=== PATIENT | male | born 2000 | race Caucasian/White ===

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

== ENCOUNTER 2020-02-15 10:01 | Day surgery (SDC) | payer BC, OTHER ==
[2020-02-11 13:10] VITALS: BMI 34.2
[~2020-02-15 10:01] MED LIST: LACTATED RINGERS 1,000 ML IV SCH; SODIUM CHLORIDE 0.9% 1,000 ML IV SCH
[2020-02-15 10:50] LABS: Basophils % (A) 1 %; Eosinophils # (A) 0.2 k/uL (0-0.7); Eosinophils % (A) 3 %; HCT 49.4 % (39.0-53.0); HGB 17.3 gm/dL (13.0-17.5); Lymphocytes # (A) 2.1 k/uL (1.0-4.8); Lymphocytes % (A) 38 %; MCH 30.1 pg (25.0-35.0); MCV 85.9 fL (80.0-100.0); Mean Platelet Volume 7.7; Monocytes # (A) 0.3 k/uL (0-1.0); Monocytes % (A) 5 %; Neutrophils # (A) 2.9 k/uL (1.3-7.7); Neutrophils % (A) 51 %; Platelet Count 232 k/uL (150-450); RBC 5.75 m/uL (4.30-5.90); RDW 12.9 % (11.5-15.5); WBC 5.6 k/uL (4.0-11.0)
[2020-02-15 10:57] LABS: African American GFR (CKD) >90 (>60 ml/min/1.73 sqM); Anion Gap 10 mmol/L; Blood Urea Nitrogen 10 mg/dL (9-20); Calcium 9.6 mg/dL (8.4-10.2); Carbon Dioxide 24 mmol/L (22-30); Chloride 105 mmol/L (98-107); Glucose 86 mg/dL (74-99); Non-African American GFR(CKD) >90 (>60 ml/min/1.73 sqM); Potassium 4.1 mmol/L (3.5-5.1); Sodium 139 mmol/L (137-145)
[2020-02-15] MEDS ORDERED: MIDAZOLAM 2 MG/2 ML VIAL ONE (11:30)
[2020-02-15] MEDS ORDERED: ONDANSETRON 4 MG/2 ML VIAL ONE (11:30)
[2020-02-15] MEDS ORDERED: fentaNYL (PF) 50 MCG/ML 2 ML AMP ONE (11:30)
[2020-02-15] MEDS ORDERED: ISOPROTERENOL 250 MCG/1.25 ML SYR IV ONE (11:30)
[2020-02-15] MEDS ORDERED: LIDOCAINE 1% INJ 10MG/ML (20 ML MDV) ONE (11:47)
[2020-02-15] MEDS ORDERED: LIDOCAINE 1% INJ 10MG/ML (20 ML MDV) SQ ONE (12:05)
--- NOTE | 2020-02-15 14:37 | P.PRLE ---
RE: Berhane Anaya Dear Dr. Tram Last underwent a diagnostic EP study which revealed #1. Typical AV node reentrant tachycardia #2. Brief bursts of atrial fibrillation, nonsustained He underwent successful ablation of the slow pathway. AV aquiles reentry was rendered noninducible. I will stop beta blockers now However he may continue to have very brief palpitations on account of short bursts of atrial fibrillation Weight reduction should continue along with lifestyle modification Thank you for entrusting me with the care of the patient Warm regards Sincerely Soto Sharma
--- NOTE | 2020-02-15 14:40 | P.HPCAR ---
History of Present Illness This is Dr. Sharma dictating an H/P on this patient The patient was interviewed and examined IMPRESSION / ASSESSMENT: Recurrent palpitations, possibly adenosine sensitive SVT Some reduction in episodes with beta blockers but he continues to have palpitations Increased BMI but steady weight reduction History of smoking cigarettes PLAN: Diagnostic EP study and possible radiofrequency ablation HPI Recurrent palpitations despite beta blockers No recent loss of consciousness No chest discomfort He also complains of anxiousness No fever chills cough expectoration no nausea vomiting or diarrhea ROS: No fever chills or rigors, no cough, phlegm or expectoration, no nausea, vomiting or diarrhea, no hematuria, dysuria, no musculoskeletal complaints, no strokes or seizures, no skin lesions. EXAMINATION: Afebrile, pulse rate 102 beats a minute, normal respirations Blood pressure 139/83 mmHg normal pulse ox on room air Breath sounds are clear no rhonchi no crackles Normal heart sounds Normal S1, normal S2 No murmurs no gallops no rub Abdomen is soft Extremities warm no edema REVIEW OF LABS, ECG & MEDICAL DATA Sodium 139, potassium 4.1, bicarb 24, BUN 10 and creatinine 0.8 Hemoglobin 17.3, platelet count 232,000, white count 5.6 thousand Physical Exam Vitals: Vital Signs Temp Pulse Resp BP Pulse Ox 02/15/20 10:39 98.4 F 102 H 18 139/83 98 Intake and Output 02/14/20 02/15/20 02/15/20 22:59 06:59 14:59 Intake Total 770 Balance 770 Intake: IV 770 Past Medical History Past Medical History: Diabetes Mellitus Additional Past Medical History / Comment(s): See Dr Sharma H&P, hx elevated liver enzymes, states past hx of diabetes, states A1C below 6 History of Any Multi-Drug Resistant Organisms: None Reported Past Surgical History: No Surgical Hx Reported Additional Past Surgical History / Comment(s): OCD Past Anesthesia/Blood Transfusion Reactions: No Reported Reaction Smoking Status: Former smoker Physical Examination Vital Signs Temp Pulse Resp BP Pulse Ox 02/15/20 10:39 98.4 F 102 H 18 139/83 98 Intake and Output 02/14/20 02/15/20 02/15/20 22:59 06:59 14:59 Intake Total 770 Balance 770 Intake: IV 770 Results 02/15/20 10:25 02/15/20 10:25 CBC 02/15/20 Range/Units 10:25 WBC 5.6 (4.0-11.0) k/uL RBC 5.75 (4.30-5.90) m/uL Hgb 17.3 (13.0-17.5) gm/dL Hct 49.4 (39.0-53.0) % Plt Count 232 (150-450) k/uL Comprehensive Metabolic Panel 02/15/20 Range/Units 10:25 Sodium 139 (137-145) mmol/L Potassium 4.1 (3.5-5.1) mmol/L Chloride 105 (98-107) mmol/L Carbon Dioxide 24 (22-30) mmol/L BUN 10 (9-20) mg/dL Creatinine 0.78 (0.66-1.25) mg/dL Glucose 86 (74-99) mg/dL Calcium 9.6 (8.4-10.2) mg/dL Current Medications Generic Name Dose Route Start Last Admin Trade Name Freq PRN Reason Stop Dose Admin Lactated Ringer's 1,000 mls @ 20 mls/hr 02/14/20 13:00 Lactated Ringers IV .Q24H SHAYLA Sodium Chloride 1,000 mls @ 50 mls/hr 02/15/20 06:03 02/15/20 10:40 Saline 0.9% IV 770 mls .Q20H SHAYLA Administration Intake and Output 02/14/20 02/15/20 02/15/20 22:59 06:59 14:59 Intake Total 770 Balance 770 Intake: IV 770 02/15/20 10:25 02/15/20 10:25
[2020-02-15] MEDS ORDERED: ACETAMINOPHEN TAB 325 MG TAB PO PRN (14:47)
[2020-02-15] MEDS ORDERED: ACETAMINOPHEN IV (For NPO) 1,000 MG in EMPTY BAG 1 BAG IVPB ONE (16:00)
--- NOTE | 2020-02-15 18:22 | P.DS ---
Providers Attending physician: Soto Sharma Primary care physician: [facility] Course: Final diagnosis AV aquiles reentrant tachycardia Status post successful ablation Brief nonsustained episodes of atrial fibrillation Plan - Discharge Summary Discharge Rx Participant: No New Discharge Prescriptions: Discontinued Metoprolol Tartrate 25 mg PO BID #60 tab Follow up Appointment(s)/Referral(s): Neha Donovan MD [STAFF PHYSICIAN] - 1 Week Activity/Diet/Wound Care/Special Instructions: Post EP study - Ablation instructions 1. Keep access sites dry for 2 days. 2. No heavy lifting or straining for 2 days. 3. Avoid bending the hips repeatedly for 2 days. 4. You may go up and down stairs slowly Call if the following is noted 1. Bleeding, increasing swelling or pain at the access sites. 2. Increasing chest discomfort, especially upon taking a deep breath. 3. Increasing shortness of breath, at rest or with exertion. 4. Undue cough / phlegm 5. Difficulty or pain while swallowing. 6. Pain or change in color in the extremities. 7. Fever, chills, rigors. 8. Increasing headache or neurologic symptoms. 9. Dizziness, fainting, palpitations Stop metoprolol Follow-up with Dr. Donovan within one week Discharge Disposition: HOME SELF-CARE
--- NOTE | 2020-02-16 03:58 | CE ---
CARDIAC ELECTROPHYSIOLOGY REPORT Berhane Anaya is a 19-year-old male patient with recurrent palpitations despite metoprolol. He is brought in for diagnostic EP study and possible ablation. Patient was brought to the EP lab in a fasting state. Written informed consent was obtained prior to the procedure. The left and right groins were prepped and draped as per protocol and 1% lidocaine was used for local anesthesia. Venous sheaths were placed in the right and left femoral veins and via these diagnostic catheters were positioned in the high right atrium, His bundle area, right ventricle and coronary sinus. Later mapping and ablation catheters were placed. A full diagnostic EP study was performed on and off Isuprel. Baseline measurements: Sinus cycle length 794 milliseconds,. IN interval 119 milliseconds, QRS 88 milliseconds, QT 333 milliseconds. AH interval 50 milliseconds, HV interval 41 milliseconds. Sinus node recovery times of 600, 500, 400 milliseconds were 1065, 1068 and 913 milliseconds. AV node Wenckebach block 330 milliseconds. VA Wenckebach block 490 milliseconds. Para Hisian pacing revealed a ab response. During sinus rhythm, the CS activation was concentric and with ventricular pacing retrograde conduction was concentric. Atrial extra stimulation was performed after double extrastimuli from the high right atrium and from the coronary sinus. Burst stimulation was performed from both sites. With burst stimulation, short bursts of atrial fibrillation were noted less than 10-20 seconds with spontaneous termination. There was evidence for antegrade slow pathway conduction with atrial extra stimulation with double extra stimuli, but in the baseline state no AV ab reentry could be induced. Isuprel was then started and burst stimulation as well as extra stimulation was performed. With burst stimulation on Isuprel at cycle length of 330 milliseconds, sustained SVT was induced. This SVT began as a long IN interval with short septal time of 37 milliseconds. Ventricular pacing at a slightly fast rate resulted in termination of the tachycardia. It is difficult to induce the AV ab reentry consistently, but we had evidence of antegrade slow pathway conduction during extra stimulation as well as inducible AV ab reentry with a short septal time. Therefore, a long sheath and a mapping ablation 4 mm tip ablation catheter was placed in the right atrium. A 3D electroanatomical mapping was performed. The His cloud was tagged and the coronary sinus os was tagged both at the roof as well as base/floor of the coronary sinus. Tricuspid valve was tagged. The slow pathway was mapped. RF ablation was applied. No junctional rhythm was noted. RF ablation was applied from the tricuspid anulus to the coronary sinus. Following this, a full diagnostic EP study was performed both on and off high-dose Isuprel wide open and then subsequently up to 5 mcg was used. With burst stimulation from the high right atrium and from the coronary sinus as well as extra stimulation up to triple extrastimuli from 2 sites, no SVT could be induced. No echo beats could be induced. No atrial fibrillation was induced. Isuprel was stopped and burst stimulation, extra stimulation was continued, but SVT could not be induced. All catheters were then removed. The patient was transferred back to telemetry. IMPRESSION: 1. Normal baseline measurements without any evidence for antegrade accessory pathway conduction. 2. Normal AH and HV intervals. 3. Ab response to para Hisian pacing. 4. Inducible AV node reentrant tachycardia, status post ablation. 5. Inducible paroxysmal atrial fibrillation with spontaneous termination within 15 to 20 seconds. PLAN: Stop metoprolol completely. MMMARTHA / KEELYN: [id number] /
[2020-02-16 08:05] VITALS: BP 128/70; PULSE 84; RESP 16; TEMP 98.1
== END 2020-02-16 12:06 | disposition home or self-care (01) ==
LOC: CATHEP 10:01 → 1SOBS 14:07 → CATHEP 02-16 12:06
PROVIDERS: ATTEND Internal Medicine Clinical Cardiac Electrophysiology
DX: I47.1 Supraventricular tachycardia (principal); I48.91 Unspecified atrial fibrillation; E11.9 Type 2 diabetes mellitus without complications; F42.9 Obsessive-compulsive disorder, unspecified; Z87.891 Personal history of nicotine dependence; Z79.899 Other long term (current) drug therapy
CPT/HCPCS: 93005; 93623; 93613; 93653; 80048; 85025; C1894; C1769 ×2; C1730 ×2; C1732; C1893; J2001

== ENCOUNTER → 2020-04-13 | Outpatient (CLI) | payer BC, OTHER ==
--- NOTE | 2020-04-13 09:20 | US ---
EXAMINATION TYPE: US liver DATE OF EXAM: 04/13/2020 COMPARISON: 03/30/2019 CLINICAL HISTORY: K76.0 Fatty liver nonalcoholic. Elevated liver enzymes EXAM MEASUREMENTS: Liver Length: 16.2 cm Gallbladder Wall: 0.2 cm CBD: 0.4 cm Right Kidney: 10.5 x 4.6 x 5.8 cm Pancreas: Obscured by bowel gas Liver: mildly heterogeneous Gallbladder: wnl Evidence for sonographic Mcdaniel's sign: no CBD: visualized portions wnl, limited by overlying bowel gas Right Kidney: wnl IMPRESSION: 1. Liver is heterogeneous. Finding is nonspecific can be seen with hepatic steatosis or hepatitis. Co rrelate clinically.
== END | disposition home or self-care (01) ==
LOC: RADUSWWP 08:43
PROVIDERS: ATTEND Internal Medicine Gastroenterology
DX: K76.89 Other specified diseases of liver (principal)
CPT/HCPCS: 76705

== ENCOUNTER 2020-05-16 01:45 | Emergency (ER) | payer BC, OTHER ==
--- NOTE | 2020-05-16 02:48 | ED ---
Headache HPI - General Chief Complaint: Headache Stated Complaint: Vision changes, headache Time Seen by Provider: 05/16/20 02:46 Mode of arrival: ambulatory Limitations: no limitations - History of Present Illness Initial Comments: Berhane is a 20 yo male with past medical history of SVT which was treated with ablation in January of this year, patient presents the ER today for evaluation of vision change and headache. Patient reports that he was watching TV when he began to have kaleidoscope-like vision in his right eye. Patient states he had similar symptoms the first time he had SVT. He states that he alerted his mother of these symptoms decided to come to the ER. In route to the ER the vision changes subsided and he developed a pretty significant headache most prominent as a pressure on the right side of the head. Patient denies any fevers, chills, nausea or vomiting. He denies any recent illness or head trauma. He reports that the headache is a dull pressure on the right side of his head. It was not sudden in onset is not the worse headache of his life. Not associated with any meningeal signs. Mother bedside states that she has a long history of migraines with visual auras and believes what he is describing is similar to what she experiences. - Related Data Allergies Allergy/AdvReac Type Severity Reaction Status Date / Time No Known Allergies Allergy Verified 05/16/20 01:55 Review of Systems ROS Statement: Those systems with pertinent positive or pertinent negative responses have been documented in the HPI. ROS Other: All systems not noted in ROS Statement are negative. Past Medical History Past Medical History: Diabetes Mellitus, Supraventricular Tachycardia (SVT) Additional Past Medical History / Comment(s): See Dr Sharma H&P, hx elevated liver enzymes, states past hx of diabetes, states A1C below 6 History of Any Multi-Drug Resistant Organisms: None Reported Past Surgical History: No Surgical Hx Reported Additional Past Surgical History / Comment(s): OCD, HEART ABLATION Past Anesthesia/Blood Transfusion Reactions: No Reported Reaction Past Psychological History: ADD/ADHD, Anxiety Smoking Status: Current every day smoker Past Alcohol Use History: None Reported Past Drug Use History: None Reported General Exam - General Exam Comments Initial Comments: Physical Exam GENERAL: Patient is well-developed and well-nourished Patient is nontoxic and well-hydrated and is in no distress. HENT: Normocephalic, Atraumatic. Full ROM of neck with no meningeal signs EYES: PERRL, EOMI PULMONARY: Unlabored respirations. CARDIOVASCULAR: RRR Warm and well perfused extremities ABDOMEN: Non-distended SKIN: No rashes or bruising : Deferred NEUROLOGIC: Alert and oriented Normal speech Normal gait MUSCULOSKELETAL: Moving all extremities with no apparent injury PSYCHIATRIC: No SI/HI Limitations: no limitations Course Vital Signs 05/16/20 05/16/20 01:52 04:44 Temperature 98.7 F 97.6 F Pulse Rate 107 H 82 Respiratory 20 18 Rate Blood Pressure 159/105 117/73 O2 Sat by Pulse 98 97 Oximetry Medical Decision Making - Medical Decision Making Patient was seen and evaluated upon arrival emergency department Patient is a 20-year-old male with visual changes which proceeded headache, however headache is only right-sided in nature and pressure-like Physical exam is unremarkable, patient has no meningeal signs headache doesn't radiate to the neck Patient did have visual changes however these results prior to arrival and the patient has no other focal neurologic deficits, headache was not sudden in onset and not the worse headache of his life Occasions and head CT were ordered Head CT with no acute findings Patient was reevaluated after occasions had significant improvement in the headache, normal head CT was discussed with the patient and patient was comfortable plan for discharge home Disposition Clinical Impression: Migraine with aura Disposition: HOME SELF-CARE Condition: Stable Instructions (If sedation given, give patient instructions): Acute Headache (ED) Additional Instructions: Follow up with primary care doctor, if you have recurrent headaches you may need referral to neurology Return to the ER for any worsening or development of new or concerning symptoms Is patient prescribed a controlled substance at d/c from ED?: No Referrals: Farhat Ugalde MD [Primary Care Provider] - 1-2 days
[2020-05-16] MEDS ORDERED: METOCLOPRAMIDE 5 MG/ML 2 ML VIAL IVP STA (03:12)
[2020-05-16] MEDS ORDERED: diphenhydrAMINE 50 MG/ML 1 ML VIAL IVP STA (03:12)
[2020-05-16] MEDS ORDERED: SODIUM CHLORIDE 0.9% 1,000 ML IV STA (03:12)
--- NOTE | 2020-05-16 04:23 | CT ---
EXAMINATION TYPE: CT brain wo con DATE OF EXAM: 05/16/2020 COMPARISON: None HISTORY: CONTE, Vison change CT DLP: 1099.40 mGycm Automated exposure control for dose reduction was used. The ventricles and sulci appear normal. There is no mass effect nor midline shift. There is no sign o f intracranial hemorrhage. The calvarium is intact. Skull base is intact. IMPRESSION: Negative unenhanced head CT scan.
[2020-05-16 04:45] VITALS: BP 117/73; PULSE 82; RESP 18; TEMP 97.6
== END 2020-05-16 04:46 | disposition home or self-care (01) ==
LOC: EC 01:45
DX: G43.109 Migraine with aura, not intractable, without status migrainosus (principal); F17.200 Nicotine dependence, unspecified, uncomplicated
CPT/HCPCS: 70450; 99284; 96374; 96375; 96361; J1200; J2765

== ENCOUNTER 2020-06-12 03:43 | Inpatient (IN) | payer OTHER ==
[2020-06-12 04:38] LABS: Basophils # (A) 0.1 k/uL (0-0.2); Basophils % (A) 1 %; Eosinophils # (A) 0.6 k/uL (0-0.7); Eosinophils % (A) 8 %; HCT 50.1 % (39.0-53.0); HGB 16.9 gm/dL (13.0-17.5); Lymphocytes # (A) 2.5 k/uL (1.0-4.8); Lymphocytes % (A) 33 %; MCH 29.7 pg (25.0-35.0); MCHC 33.8 g/dL (31.0-37.0); Mean Platelet Volume 7.5; Monocytes # (A) 0.4 k/uL (0-1.0); Monocytes % (A) 6 %; Neutrophils # (A) 3.7 k/uL (1.3-7.7); Neutrophils % (A) 50 %; Platelet Count 231 k/uL (150-450); RDW 13.2 % (11.5-15.5); WBC 7.4 k/uL (4.0-11.0)
[2020-06-12 04:43] LABS: Appearance,Urine Clear (Clear); Bacteria,Urine Rare /hpf; Bilirubin,Urine Negative (Negative); Blood,Urine Large (Negative); Color,Urine Yellow; Glucose,Urine (UA) Negative (Negative); Ketones,Urine Negative (Negative); Leukocyte Esterase,Urine Negative (Negative); Mucus,Urine Rare /hpf; Nitrite,Urine Negative (Negative); Protein,Urine 1+ (Negative); RBC,Urine <1 /hpf (0-5); Specific Gravity,Urine 1.029 (1.001-1.035); Urobilinogen,Urine <2.0 mg/dL (<2.0); WBC,Urine 1 /hpf (0-5)
[2020-06-12 04:49] LABS: ALT 223 U/L (4-49); African American GFR (CKD) >90 (>60 ml/min/1.73 sqM); Albumin 4.2 g/dL (3.5-5.0); Alkaline Phosphatase 47 U/L (38-126); Anion Gap 7 mmol/L; Blood Urea Nitrogen 17 mg/dL (9-20); Calcium 9.2 mg/dL (8.4-10.2); Carbon Dioxide 23 mmol/L (22-30); Chloride 108 mmol/L (98-107); Glucose 117 mg/dL (74-99); Non-African American GFR(CKD) >90 (>60 ml/min/1.73 sqM); Potassium 4.3 mmol/L (3.5-5.1); Sodium 138 mmol/L (137-145); Total Bilirubin 1.5 mg/dL (0.2-1.3); Total Protein 6.7 g/dL (6.3-8.2)
[2020-06-12 04:55] LABS: AST 1175 U/L (17-59)
[2020-06-12] MEDS ORDERED: NALOXONE 0.4 MG/ML 1 ML VIAL IV PRN (07:44)
[2020-06-12] MEDS ORDERED: SODIUM CHLORIDE 0.9% 1,000 ML IV SCH (07:45)
--- NOTE | 2020-06-12 09:50 | US ---
EXAMINATION TYPE: US liver DATE OF EXAM: 06/12/2020 COMPARISON: US dated 04/13/2020 CLINICAL HISTORY: transaminitis, elevated bili. HT EXAM MEASUREMENTS: Liver Length: 16.4 cm Gallbladder Wall: 0.2 cm CBD: 0.3 cm Right Kidney: 9.7 x 6.2 x 4.6 cm Pancreas: mid and tail is obscured by overlying bowel gas Liver: attenuated posteriorly, coarse echotexture Gallbladder: wnl Evidence for sonographic Mcdaniel's sign: no CBD: wnl Right Kidney: No hydronephrosis or masses seen IMPRESSION: Findings are similar to prior exam. Correlate for possible hepatic steatosis, hepatocellu lar disease
--- NOTE | 2020-06-12 12:06 | P.HPIM ---
History of Present Illness H&P Date: 06/12/20 HISTORY OF PRESENT ILLNESS This is a 20-year-old male patient of Dr. Ugalde with past medical history of with past medical history of seasonal ALLERGIES, supraventricular tachycardia status post ablation with Dr. Sharma in January 2020, fatty liver and follows with GI, morbid obesity, obstructive sleep apnea with CPAP, tobacco use and dependence, alcohol abuse. Patient gives history of weight loss 747 pounds over the past 2 years and is currently on a plateau. He states he lost the first 100 pounds by intermittent fasting and then the past 50 pounds with eating 3 meals a day. He states he normally walks for exercise spot on Friday he decided to lift weights and did so for 1-1/2 hours on his first time. He felt like he pulled a bicep muscle. He was feeling lightheaded. Patient apparently also had vision changes and headache. He states that his urine was orange but most recently had started to lighten up secondary to IV fluids. Liver ultrasound in March 2020 revealed liver is heterogeneous. Finding is nonspecific can be seen with hepatic steatosis or hepatitis. Patient has also been taking Motrin 600 mg twice daily. Patient came into [facility] emergency center for evaluation. Initial blood pressure 159/105 and repeated 117/73, heart rate 107, pulse ox 98% on room air. CAT scan of the brain was negative. Ultrasound of the liver revealed similar findings from March. Possible hepatic steatosis, hepatocellular disease. Lab work revealed creatinine 0.94, total bilirubin 1.5, AST 1175, ALT 223, alkaline phosphatase 47. The patient was started on IV fluids, [facility] with [facility]. REVIEW OF SYSTEMS Constitutional: No fever, no chills, no night sweats. No weight change. Report weakness, fatigue or lethargy. No daytime sleepiness. EENT: Reports headache. Reports blurred vision or double vision, no loss of vision. No loss of Hearing, no ringing in the ears, no dizziness. No nasal drainage or congestion. No epistaxis. No sore throat. Lungs: No shortness of breath, cough, no sputum production. No wheezing. Cardiovascular: No chest pain, no lower extremity edema. No palpitations. No paroxysmal nocturnal dyspnea. No orthopnea. No lightheadedness or dizziness. No syncopal episodes. Abdominal: No abdominal pain. No nausea, vomiting. No diarrhea. No constipation. No bloody or tarry stools.. No loss of appetite. Genitourinary: No dysuria, increased frequency, urgency. No urinary retention. Musculoskeletal: No myalgias. No muscle weakness, no gait dysfunction, no frequent falls. No back pain. No neck pain. Integumentary: No wounds, no lesions. No rash or pruritus. No unusual bruising. No change in hair or nails. Neurologic: No aphasia. No facial droop. No change in mentation. No head injury. No headache. No paralysis. No paresthesia. Psychiatric: No depression. No anxiety. No mood swings. Endocrine: No abnormal blood sugars. No weight change. No excessive sweating or thirst. No cold intolerance. SOCIAL HISTORY Patient states that he only drinks alcohol 2 times per month but he drinks excessively each time. He has been smoking on and off and tried to quit when he had his ablation. He is slowly started back to vaping. He denies any marijuana or drug use. He is a student. He does not have any children. FAMILY HISTORY Mother is alive at age 56 with elevated liver enzymes as well. Father is alive with but he does not know his medical history. Patient has 2 half-sisters with no major medical problems. He does not have any brothers, no children.. PHYSICAL EXAMINATION Gen: This is a 20-year-old morbidly obese male. He is sitting on the ER stretcher and appears to be comfortable. Mother is at bedside. HEENT: Head is atraumatic, normocephalic. Pupils equal, round. Sclerae is anicteric. NECK: Supple. No JVD. No lymphadenopathy. No thyromegaly. LUNGS: Clear to auscultation. No wheezes or rhonchi. No intercostal re tractions. HEART: Regular rate and rhythm. No murmur. ABDOMEN: Soft. Bowel sounds are present. No masses. No tenderness. No CVA tenderness. EXTREMITIES: No pedal edema. No calf tenderness. Dorsalis pedis palpable bilaterally. NEUROLOGICAL: Patient is awake, alert and oriented x3. Cranial nerves 2 through 12 are grossly intact. ASSESSMENT AND PLAN 1. Elevated liver function test with history of fatty liver disease under the care of GI. Consult with GI. Continue IV fluids decreased to 130s cc per hour, obtain CK level. 2. Migraine headache, stable. 3. History of SVT status post ablation, stable. 4. Seasonal ALLERGIES. 5. Morbid obesity status post weight loss of 147 pounds over 2 years. 6. Tobacco use and dependence. Nicotine patch. 7. Alcohol abuse, stable. 8. ADHD, OCD. 9. GI prophylaxis. Protonix. 10. DVT prophylaxis. Early ambulation. Patient will be admitted to the hospital for a minimum of 2 night stay. Discharge plan Home. Impression and plan of care have been directed as dictated by the signing physician. Nelia Black nurse practitioner acting as scribe for signing physician. Past Medical History Past Medical History: Diabetes Mellitus, Supraventricular Tachycardia (SVT) Additional Past Medical History / Comment(s): See Dr Sharma H&P, hx elevated liver enzymes, states past hx of diabetes, states A1C below 6 History of Any Multi-Drug Resistant Organisms: None Reported Past Surgical History: No Surgical Hx Reported Additional Past Surgical History / Comment(s): OCD, HEART ABLATION Past Anesthesia/Blood Transfusion Reactions: No Reported Reaction Past Psychological History: ADD/ADHD, Anxiety Smoking Status: Current every day smoker Past Alcohol Use History: None Reported Past Drug Use History: None Reported Medications and Allergies Home Medications Medication Instructions Recorded Confirmed Type Ibuprofen 600 mg PO Q6H PRN 06/12/20 06/12/20 History Loratadine [Claritin] 10 mg PO DAILY 06/12/20 06/12/20 History Allergies Allergy/AdvReac Type Severity Reaction Status Date / Time No Known Allergies Allergy Verified 06/12/20 07:38 Physical Exam Vitals: Intake and Output 06/11/20 06/12/20 06/12/20 22:59 06:59 14:59 Other: Weight 0 g
[2020-06-12] MEDS: SODIUM CHLORIDE 0.9% 1,000 ML IV SCH ×2 (13:37→19:32)
[2020-06-12] MEDS: NICOTINE 14MG/24HR PATCH TRANSDERM SCH (13:38)
[2020-06-12] MEDS ORDERED: PANTOPRAZOLE 40 MG TABLET PO ONE (16:18)
[2020-06-12] MEDS ORDERED: hydrALAZINE HCL 20 MG/ML 1 ML VIAL IVP PRN (20:24)
[2020-06-12] MEDS: MELATONIN 3 MG TABLET PO SCH (20:56)
[2020-06-13] MEDS: SODIUM CHLORIDE 0.9% 1,000 ML IV SCH ×3 (03:03→17:32)
[2020-06-13 04:34] LABS: C Reactive Protein <0.4 mg/dL (0.0-0.8); LDH 2009 U/L (120-246)
[2020-06-13 05:14] LABS: Basophils % (A) 1 %; Eosinophils # (A) 0.4 k/uL (0-0.7); Eosinophils % (A) 6 %; HCT 48.8 % (39.0-53.0); HGB 16.5 gm/dL (13.0-17.5); Lymphocytes # (A) 2.3 k/uL (1.0-4.8); Lymphocytes % (A) 35 %; MCH 30.5 pg (25.0-35.0); MCHC 33.8 g/dL (31.0-37.0); MCV 90.3 fL (80.0-100.0); Mean Platelet Volume 7.5; Monocytes # (A) 0.4 k/uL (0-1.0); Monocytes % (A) 6 %; Neutrophils # (A) 3.4 k/uL (1.3-7.7); Neutrophils % (A) 51 %; Platelet Count 207 k/uL (150-450); RBC 5.41 m/uL (4.30-5.90); WBC 6.6 k/uL (4.0-11.0)
[2020-06-13 05:17] LABS: Hepatitis A Antibody IgM Non-Reactive (Non-Reactive); Hepatitis B Core IgM Non-Reactive (Non-Reactive); Hepatitis B Surface Antigen Non-Reactive (Non-Reactive); Hepatitis C IgG Antibody Non-Reactive (Non-Reactive)
[2020-06-13] MEDS: hydrALAZINE HCL 25 MG TAB PO PRN ×2 (06:01→12:46)
[2020-06-13 09:19] LABS: INR 1.1 (0.90-1.11); Prothrombin Time 11.7 sec (9.9-11.9)
[2020-06-13 09:24] LABS: African American GFR (CKD) 157.5 (60.0-200.0); Albumin/Globulin Ratio 2.22 (1.60-3.17); Anion Gap 6.8 mmol/L (4.00-12.00); BUN/Creat Ratio 12.86 Ratio (12.00-20.00); Calcium 9.1 mg/dL (8.7-10.3); Carbon Dioxide 25.2 mmol/L (21.6-31.8); Globulin 1.8 g/dL (1.6-3.3); Non-African American GFR(CKD) 135.9 (60.0-200.0); Potassium 4.2 mmol/L (3.5-5.5); Total Bilirubin 2.1 mg/dL (0.2-1.2); Total Protein 5.8 g/dL (6.2-8.2)
--- NOTE | 2020-06-13 10:01 | P.CONS ---
History of Present Illness - Reason for Consult Consult date: 06/12/20 Elevated liver enzymes Requesting physician: Jules Silva - Chief Complaint Muscle soreness, dark urine, headache - History of Present Illness 20-year-old male with a medical history significant for morbid obesity status post 140 pounds of weight loss, MATTY, prior history of supraventricular tachycardia status post ablation in 2019 who presented to the hospital with a constellation of symptoms including headache, muscle soreness and dark-colored urine. The patient does have a known history of elevated liver enzymes believed to be secondary to nonalcoholic fatty liver disease. He is been seen in the GI clinic in the past. He presented to the hospital with a constellation of symptoms including dark [employer] colored urine. He reports that this began after a strenuous work revealed on Friday. No prior episodes of markedly elevated liver enzymes as stated previously had been mildly elevated and felt to be secondary to fatty liver as stated. She denies any excessive alcohol use reporting only occasional binge drinking one to 2 times per month. He denies any illicit drug use, IV drug use, herbal supplementation. No history of sexually transmitted diseases. The patient has had mononucleosis in the past. Laboratory evaluation on presentation significant for total bilirubin 1.5, alkaline phosphatase 47, AST 1175 and ALT 223 with WBC 7.4, hemoglobin 16.9 and platelet count 231,000. Review of Systems REVIEW OF SYSTEMS: CONSTITUTIONAL: Denies any fevers, chills, weight change or fatigue. CARDIOVASCULAR: Denies any chest pain, palpitations high or low blood pressures RESPIRATORY: Denies any shortness of breath, hemoptysis or cough. GENITOURINARY: No dysuria or hematuria, does report dark colored urine. MUSCULOSKELETAL: No weakness reported, does report general achiness. SKIN: Denies any new rashes or lesions, jaundice or pallor. PSYCHIATRIC: Denies any depression or anxiety. NEUROLOGY: Denies headache, denies any new focal deficits. EARS/NOSE/THROAT: No recent hearing change, congestion, nasal discharge or sore throat. EYES: No pain in eyes, discharge or change in vision. GASTROINTESTINAL: As per HPI. Past Medical History Past Medical History: Diabetes Mellitus, Supraventricular Tachycardia (SVT) Additional Past Medical History / Comment(s): See Dr Zachary Grant&P, hx elevated liver enzymes, states past hx of diabetes, states A1C below 6 History of Any Multi-Drug Resistant Organisms: None Reported Past Surgical History: No Surgical Hx Reported Additional Past Surgical History / Comment(s): OCD, HEART ABLATION Past Anesthesia/Blood Transfusion Reactions: No Reported Reaction Past Psychological History: ADD/ADHD, Anxiety Smoking Status: Current every day smoker Past Alcohol Use History: None Reported Past Drug Use History: None Reported Additional History: Family history: Reviewed with the patient and noncontributory to current medical presentation Medications and Allergies Home Medications Medication Instructions Recorded Confirmed Type Ibuprofen 600 mg PO Q6H PRN 06/12/20 06/12/20 History Loratadine [Claritin] 10 mg PO DAILY 06/12/20 06/12/20 History Allergies Allergy/AdvReac Type Severity Reaction Status Date / Time No Known Allergies Allergy Verified 06/12/20 07:38 Physical Exam Vitals: Vital Signs Temp Pulse Resp BP Pulse Ox 06/12/20 14:15 98.1 F 122 H 18 166/89 99 06/12/20 09:36 98.3 F 116 H 20 150/92 98 Intake and Output 06/12/20 06/12/20 06/12/20 06:59 14:59 22:59 Other: Weight 112.037 kg On physical examination, patient appears comfortable in no apparent distress. HEAD: Normocephalic, atraumatic. EYES: No scleral icterus. No conjunctival injection. MOUTH: No lesions, tongue midline. NECK: Trachea midline, no gross abnormalities. CHEST: Clear to auscultation with no wheezing or rhonchi appreciated. HEART: Regular rate and rhythm. ABDOMEN: Soft, obese. Bowel sounds are positive. No organomegaly. No guarding or rigidity. EXTREMITIES: No pedal edema. SKIN: No rashes, no jaundice. NEUROLOGIC: Alert and oriented x3. No focal deficits. Results CBC & Chem 7: 06/13/20 04:52 06/12/20 04:06 Labs: Abnormal Lab Results - Last 24 Hours (Table) 06/12/20 06/12/20 Range/Units 04:06 04:06 Chloride 108 H (98-107) mmol/L Glucose 117 H (74-99) mg/dL Total Bilirubin 1.5 H (0.2-1.3) mg/dL AST 1175 H (17-59) U/L ALT 223 H (4-49) U/L Urine Protein 1+ H (Negative) Urine Blood Large H (Negative) Urine Bacteria Rare H (None) /hpf Urine Mucus Rare H (None) /hpf US - abdomen: report reviewed (Ultrasound of the abdomen with findings of hepatic steatosis with normal gallbladder and CBD) Assessment and Plan (1) Elevated liver enzymes Narrative/Plan: 20-year-old male with a history of obesity, nonalcoholic fatty liver disease, cuevas praventricular tachycardia status post ablation who presented to the hospital due to weakness and headache. The patient reports recently working out and noticed a headache, weakness and dark-colored urine. Markedly elevated liver enzymes on presentation predominantly in a hepatocellular pattern with AST 1175, ALT 223, total bilirubin 1.5 and alkaline phosphatase 47. Creatinine kinase is markedly elevated. Suspicion is for elevated liver enzymes secondary to rhabdomyolysis. He does have a history of nonalcoholic fatty liver disease. Ultrasound of the abdomen is consistent with nonalcoholic fatty liver disease with no gallbladder or biliary pathology. Full liver serology will be ordered including viral studies to rule out other etiology of elevated liver enzymes. Current Visit: Yes Status: Acute Code(s): R74.8 - ABNORMAL LEVELS OF OTHER SERUM ENZYMES SNOMED Code(s): 342490207 (2) Nonalcoholic fatty liver disease Current Visit: Yes Status: Acute Code(s): K76.0 - FATTY (CHANGE OF) LIVER, NOT ELSEWHERE CLASSIFIED SNOMED Code(s): 196049293 Plan: Supportive care Okay for diet Continue to monitor CBC, BMP, LFTs and INR Monitor for any signs or symptoms of encephalopathy Avoid hepatotoxic medications Full liver serologies ordered Thank you for allowing us to participate in the care of the patient we will continue to follow
[2020-06-13] MEDS: NICOTINE 14MG/24HR PATCH TRANSDERM SCH (10:04)
[2020-06-13] MEDS: PANTOPRAZOLE 40 MG TABLET PO SCH (10:04)
[2020-06-13] MEDS: hydrALAZINE HCL 25 MG TAB PO SCH ×2 (10:08→20:52)
[2020-06-13 10:11] LABS: Protein, Total 5.8 g/dL (6.2-8.2)
--- NOTE | 2020-06-13 10:53 | P.PN ---
Subjective Progress Note Date: 06/13/20 HISTORY OF PRESENT ILLNESS This is a 20-year-old male patient of Dr. Ugalde with past medical history of with past medical history of seasonal ALLERGIES, supraventricular tachycardia status post ablation with Dr. Sharma in January 2020, fatty liver and follows with GI, morbid obesity, obstructive sleep apnea with CPAP, tobacco use and dependence, alcohol abuse. Patient gives history of weight loss 747 pounds over the past 2 years and is currently on a plateau. He states he lost the first 100 pounds by intermittent fasting and then the past 50 pounds with eating 3 meals a day. He states he normally walks for exercise spot on Friday he decided to lift weights and did so for 1-1/2 hours on his first time. He felt like he pulled a bicep muscle. He was feeling lightheaded. Patient apparently also had vision changes and headache. He states that his urine was orange but most recently had started to lighten up secondary to IV fluids. Liver ultrasound in March 2020 revealed liver is heterogeneous. Finding is nonspecific can be seen with hepatic steatosis or hepatitis. Patient has also been taking Motrin 600 mg twice daily. Patient came into [facility] emergency center for evaluation. Initial blood pressure 159/105 and repeated 117/73, heart rate 107, pulse ox 98% on room air. CAT scan of the brain was negative. Ultrasound of the liver rev ealed similar findings from March. Possible hepatic steatosis, hepatocellular disease. Lab work revealed creatinine 0.94, total bilirubin 1.5, AST 1175, ALT 223, alkaline phosphatase 47. The patient was started on IV fluids, admitted to the MedSur floor and consult with GI. 06/13: Yesterday, CK level came back at 7332. Repeat this morning is still pending. CBC is unremarkable, electrolytes renal function are within normal limits. Total bilirubin 2.1, AST 750, ALT 216, alkaline phosphatase 39. Hepatitis panel is negative. Patient has been seen by GI and follows in their office. Elevated liver enzymes are thought to be related to rhabdomyolysis. Full liver serology has been ordered. Patient is currently tolerating diet. He remains on IV fluids. His blood pressure has been elevated for which hydralazine will be ordered as scheduled and as needed. He has been afebrile, heart rate 98, blood pressure 146/91, pulse ox 100% on room air. REVIEW OF SYSTEMS Constitutional: No fever, no chills, no night sweats. No weight change. Report weakness, fatigue or lethargy. No daytime sleepiness. EENT: Reports headache. Reports blurred vision or double vision, no loss of vision. No loss of Hearing, no ringing in the ears, no dizziness. No nasal drainage or congestion. No epistaxis. No sore throat. Lungs: No shortness of breath, cough, no sputum production. No wheezing. Cardiovascular: No chest pain, no lower extremity edema. No palpitations. No paroxysmal nocturnal dyspnea. No orthopnea. No lightheadedness or dizziness. No syncopal episodes. Abdominal: No abdominal pain. No nausea, vomiting. No diarrhea. No constipation. No bloody or tarry stools. No loss of appetite. Genitourinary: No dysuria, increased frequency, urgency. No urinary retention. Musculoskeletal: No myalgias. No muscle weakness, no gait dysfunction, no frequent falls. No back pain. No neck pain. Integumentary: No wounds, no lesions. No rash or pruritus. No unusual bruising. No change in hair or nails. Neurologic: No aphasia. No facial droop. No change in mentation. No headache. \ No paresthesia. Psychiatric: No depression. No anxiety. Endocrine: No abnormal blood sugars. PHYSICAL EXAMINATION Gen: This is a 20-year-old morbidly obese male. He is resting in bed and appears to be comfortable. HEENT: Head is atraumatic, normocephalic. Pupils equal, round. Sclerae is anicteric. NECK: Supple. No JVD. No lymphadenopathy. No thyromegaly. LUNGS: Clear to auscultation. No wheezes or rhonchi. No intercostal retractions. HEART: Regular rate and rhythm. No murmur. ABDOMEN: Soft. Bowel sounds are present. No masses. No tenderness. No CVA tenderness. EXTREMITIES: No pedal edema. No calf tenderness. Dorsalis pedis palpable bilaterally. NEUROLOGICAL: Patient is awake, alert and oriented x3. Cranial nerves 2 through 12 are grossly intact. ASSESSMENT AND PLAN 1. Rhabdomyolysis, POA. Continue IV fluids, regular diet. Repeat CK today and tomorrow. 2. Elevated liver function test with history of fatty liver disease under the care of GI. Consult with GI appreciated. Continue IV fluids decreased to 130s cc per hour. Serology testing has been ordered. Hepatitis panel negative. 3. Migraine headache, stable. 4. History of SVT status post ablation, stable. 5. Seasonal ALLERGIES. 6. Morbid obesity status post weight loss of 147 pounds over 2 years. 7. Tobacco use and dependence. Nicotine patch. 8. Alcohol abuse, stable. 9. ADHD, OCD. 10. Hypertension. Patient started on hydralazine 25 mg twice daily and as needed. 11. GI prophylaxis. Protonix. 12. DVT prophylaxis. Early ambulation. Discharge plan Home in the next 24 hours. Impression and plan of care have been directed as dictated by the signing physician. Nelia Black nurse practitioner acting as scribe for signing physician. Objective - Vital Signs Vital signs: Vital Signs Temp 98.3 F 06/13/20 05:00 Pulse 98 06/13/20 05:00 Resp 20 06/13/20 05:00 BP 146/91 06/13/20 05:00 Pulse Ox 100 06/13/20 05:00 Intake & Output 06/12/20 06/13/20 06/13/20 18:59 06:59 18:59 Intake Total 1040 1910 Balance 1040 1910 Weight 112.037 kg Intake: Intake, IV Titration 1040 1560 Amount Sodium Chloride 0.9% 1, 1040 1560 000 ml @ 130 mls/hr IV . Q7H42M [facility] Rx#:[id number] Oral 350 Other: Voiding Method Toilet - Labs CBC & Chem 7: 06/13/20 04:52 06/13/20 04:52 Labs: Abnormal Lab Results - Last 24 Hours (Table) 06/12/20 06/12/20 06/12/20 Range/Units 04:06 04:06 04:06 Chloride 108 H (98-107) mmol/L Glucose 117 H (74-99) mg/dL Total Bilirubin 1.5 H (0.2-1.3) mg/dL AST 1175 H (17-59) U/L ALT 223 H (4-49) U/L Lactate Dehydrogenase 2009 H (120-246) U/L Creatine Kinase (35-294) Urine Protein 1+ H (Negative) Urine Blood Large H (Negative) Urine Bacteria Rare H (None) /hpf Urine Mucus Rare H (None) /hpf 10/19/20 Range/Units 12:37 Chloride (98-107) mmol/L Glucose (74-99) mg/dL Total Bilirubin (0.2-1.3) mg/dL AST (17-59) U/L ALT (4-49) U/L Lactate Dehydrogenase (120-246) U/L Creatine Kinase 7332 H* (35-294) Urine Protein (Negative) Urine Blood (Negative) Urine Bacteria (None) /hpf Urine Mucus (None) /hpf
[2020-06-13] MEDS: IBUPROFEN 600 MG TAB PO PRN ×2 (12:46→22:53)
[2020-06-13 13:17] LABS: Ceruloplasmin 19.8 mg/dL (20.0-60.0)
--- NOTE | 2020-06-13 13:20 | P.PN ---
Subjective Progress Note Date: 06/13/20 Principal diagnosis: Elevated liver enzymes The patient's CK level came back at 7332 yesterday afternoon. Repeat this morning is still pending. CBC is unremarkable, electrolytes renal function are within normal limits. Total bilirubin 2.1, AST 750, ALT 216, alkaline phosphata se 39. Hepatitis panel is negative. The patient follows with Kala Middleton for history of fatty liver and elevated liver enzymes. Elevated liver enzymes are thought to be related to rhabdomyolysis. Full liver serology has been ordered. Patient is currently tolerating diet. He remains on IV fluids. His blood pressure has been elevated for which hydralazine will be ordered as scheduled and as needed. He has been afebrile, heart rate 98, blood pressure 146/91, pulse ox 100% on room air. The patient denies any abdominal pain, nausea, or vomiting. He states he is very anxious and has a history of anxiety. Objective - Vital Signs Vital signs: Vital Signs Temp 98.4 F 06/13/20 11:47 Pulse 120 H 06/13/20 11:47 Resp 20 06/13/20 11:47 BP 172/104 06/13/20 11:47 Pulse Ox 97 06/13/20 11:47 Intake & Output 06/12/20 06/13/20 06/13/20 18:59 06:59 18:59 Intake Total 1040 1910 Balance 1040 1910 Weight 112.037 kg Intake: Intake, IV Titration 1040 1560 Amount Sodium Chloride 0.9% 1, 1040 1560 000 ml @ 130 mls/hr IV . Q7H42M [facility] Rx#:[id number] Oral 350 Other: Voiding Method Toilet Toilet - Exam General appearance: The patient is alert, oriented, in no acute distress. Obese. HET: Head is normocephalic and atraumatic. Conjunctiva pink. Sclera anicteric. Neck: Supple without lymphadenopathy. Abdomen: Soft, obese, nontender, nondistended with bowel sounds. No guarding or rigidity. Extremities: Normal skin color and turgor. No pedal edema Neurological: No focal deficits. Alert and oriented 3. Appears anxious. - Labs CBC & Chem 7: 06/13/20 04:52 06/13/20 04:52 Labs: Abnormal Lab Results - Last 24 Hours (Table) 1006/12/20 06/13/20 Range/Units 04:06 12:37 04:52 Total Bilirubin (0.2-1.2) mg/dL AST (14-35) U/L ALT (10-49) U/L Alkaline Phosphatase (41-126) U/L Lactate Dehydrogenase 2009 H (120-246) U/L Creatine Kinase 7332 H* (35-294) Total Protein (6.2-8.2) g/dL Total Protein (PEP) 5.8 L (6.2-8.2) g/dL 06/13/20 Range/Units 04:52 Total Bilirubin 2.1 H (0.2-1.2) mg/dL AST 750 H (14-35) U/L ALT 216 H (10-49) U/L Alkaline Phosphatase 39 L (41-126) U/L Lactate Dehydrogenase (120-246) U/L Creatine Kinase (35-294) Total Protein 5.8 L (6.2-8.2) g/dL Total Protein (PEP) (6.2-8.2) g/dL Assessment and Plan (1) Elevated liver enzymes Narrative/Plan: This is a 20-year-old male with a history of obesity, nonalcoholic fatty liver disease, supraventricular tachycardia status post ablation who presented to the hospital due to weakness and headache. The patient reports recently working out and noticed a headache, weakness and dark urine. He had markedly elevated liver enzymes on presentation predominantly in a hepatocellular pattern with AST 1175, ALT 223, total bilirubin 1.5 and alkaline trans-phosphatase 47. Creatinine kinase is markedly elevated. Suspicion is for elevated liver enzymes secondary to rhabdomyolysis. He does have a history of nonalcoholic fatty liver disease. Ultrasound the abdomen is consistent with nonalcoholic fatty liver disease with no gallbladder or biliary pathology. The liver serology as ordered to rule out other etiology of elevated liver enzymes, and pending results. Hepatitis A, B, and C are all negative. Current Visit: Yes Status: Acute Code(s): R74.8 - ABNORMAL LEVELS OF OTHER S RASHI ENZYMES SNOMED Code(s): 771085858 (2) Nonalcoholic fatty liver disease Current Visit: Yes Status: Acute Code(s): K76.0 - FATTY (CHANGE OF) LIVER, NOT ELSEWHERE CLASSIFIED SNOMED Code(s): 698217700 Plan: 1. Supportive care 2. Advance diet as tolerated 3. Continue to monitor CBC, CMP, INR, creatinine kinase 4. Monitor for any signs or symptoms of encephalopathy 5. Avoid hepatotoxic medications 6. Full liver serologies ordered 7. We will continue to follow closely The impression and plan of care has been dictated as directed. I performed a history and examination of this patient, discussed the same with the dictator. I agree with the dictator's note ,documented as a scribe. Any additional findings or plans will be noted.
[2020-06-13 13:29] LABS: Alpha Fetoprotein, Tumor Mkr <2.5 ng/mL (0.0-7.9)
[2020-06-13 19:58] LABS: EBV-EA (IgG) <0.2 AI; EBV-EBNA(IgG) <0.2 AI; EBV-VCA (IgG) <0.2 AI; EBV-VCA (IgM) <0.2 AI
[2020-06-13 20:50] LABS: HIV 2 AB Non-Reactive (Non-Reactive); HIV AB P24 Non-Reactive (Non-Reactive); HIV P24 AG Non-Reactive (Non-Reactive)
[2020-06-13] MEDS: MELATONIN 3 MG TABLET PO SCH (22:50)
[2020-06-14] MEDS: SODIUM CHLORIDE 0.9% 1,000 ML IV SCH ×3 (01:08→21:42)
[2020-06-14 07:21] LABS: Herpes simplex I and/or II IgM 0.23 INDEX (<=0.90); Herpes simplex IgG I Ab 1.2 (< or = 0.90); Herpes simplex IgG II Ab 2.96 (< or = 0.90)
[2020-06-14] MEDS: NICOTINE 14MG/24HR PATCH TRANSDERM SCH (08:02)
[2020-06-14] MEDS: hydrALAZINE HCL 25 MG TAB PO SCH ×2 (08:03→23:59)
[2020-06-14] MEDS: PANTOPRAZOLE 40 MG TABLET PO SCH (08:03)
[2020-06-14 09:41] LABS: ALT 174 U/L (10-49); AST 511 U/L (14-35); African American GFR (CKD) 157.5 (60.0-200.0); Albumin/Globulin Ratio 2.12 (1.60-3.17); Alkaline Phosphatase 34 U/L (41-126); BUN/Creat Ratio 17.14 Ratio (12.00-20.00); Calcium 8.9 mg/dL (8.7-10.3); Chloride 108 mmol/L (96-109); Globulin 1.7 g/dL (1.6-3.3); Glucose 74 mg/dL (70-110); Non-African American GFR(CKD) 135.9 (60.0-200.0); Sodium 139 mmol/L (135-145); Total Bilirubin 1.8 mg/dL (0.2-1.2); Total Protein 5.3 g/dL (6.2-8.2)
--- NOTE | 2020-06-14 11:00 | P.NPCON ---
History of Present Illness - Reason for Consult acute renal failure - History of Present Illness Reason for consultation: Rhabdomyolysis History of present illness: Patient is a 20-year-old male seen in renal consultation for rhabdomyolysis. Patient states he started lifting weights on Friday. Patient states he was doing curls or 25 pounds and rowing with 90 pounds. He also admits to doing multiple polyps. Patient states he lost complete range of motion in his arms and Friday. He also noticed dark colored urine early Friday morning. He subsequently came to the hospital for further evaluation. Patient's CK level was initially 7332 and on repeat has been greater than 7800. His GFR is at ba seline. He admits to good urine output. Denies hematuria or dysuria now. He is maintained on normal saline at 130 mL an hour. He denies taking statin. His AST and ALT were also elevated but are now trending down. No vomiting or diarrhea. He does admit to taking nonsteroidals as needed. Not a diabetic now but was in the past. Patient states he lost about 150 pounds over the last 2 years. No other complaints at this time. Vital signs are stable. General: The patient appeared well nourished and normally developed. HEENT: Head exam is unremarkable. Neck is without jugular venous distension. LUNGS: Lungs are clear to auscultation and percussion. Breath sounds decreased. HEART: Rate and Rhythm are regular. First and second heart sounds normal. No murmurs, rubs or gallops. ABDOMEN: Soft, nontender. EXTREMITITES: No clubbing, cyanosis, or edema. Past Medical History Past Medical History: Diabetes Mellitus, Supraventricular Tachycardia (SVT) Additional Past Medical History / Comment(s): See Dr Sharma H&P, hx elevated liver enzymes, states past hx of diabetes, states A1C below 6 History of Any Multi-Drug Resistant Organisms: None Reported Past Surgical History: No Surgical Hx Reported Additional Past Surgical History / Comment(s): OCD, HEART ABLATION Past Anesthesia/Blood Transfusion Reactions: No Reported Reaction Past Psychological History: ADD/ADHD, Anxiety Smoking Status: Current every day smoker Past Alcohol Use History: None Reported Past Drug Use History: None Reported Medications and Allergies Home Medications Medication Instructions Recorded Confirmed Type Ibuprofen 600 mg PO Q6H PRN 06/12/20 06/12/20 History Loratadine [Claritin] 10 mg PO DAILY 06/12/20 06/12/20 History Allergies Allergy/AdvReac Type Severity Reaction Status Date / Time No Known Allergies Allergy Verified 06/12/20 07:38 Physical Exam Vitals: Vital Signs Temp Pulse Resp BP Pulse Ox 06/14/20 08:16 97.8 F 90 22 146/77 06/14/20 08:00 90 22 06/14/20 05:00 97.7 F 98 20 117/75 98 06/13/20 21:00 98.0 F 107 H 20 120/67 98 06/13/20 14:14 143/74 06/13/20 11:47 98.4 F 120 H 20 172/104 97 Intake and Output 06/13/20 06/14/20 06/14/20 22:59 06:59 14:59 Intake Total 1560 Balance 1560 Intake: Intake, IV Titration 1560 Amount Sodium Chloride 0.9% 1, 1560 000 ml @ 130 mls/hr IV . Q7H42M [facility] Rx#:[id number] Other: Voiding Method Toilet Toilet # Voids 1 2 Results - Lab Results Most recent lab results Calcium 8.9 mg/dL (8.7-10.3) 06/14/20 05:02 Magnesium 2.0 mg/dL (1.6-2.3) 06/12/20 04:06 06/13/20 04:52 06/14/20 05:02 Assessment and Plan Plan: Assessment: 1. Rhabdomyolysis secondary to extreme exercise. CK level greater than 7800. UA reveals large blood without any RBCs suggestive of myoglobinuria. 2. History of diabetes. Now resolved after weight loss. Plan: Increase rate of normal saline to 200 mL an hour. Repeat CK level in the morning. I will as the lab to quantify it. Avoid nephrotoxins. Continue to monitor renal function and urine output. Thank you for the consultation. I will continue to follow the patient with you during his hospital stay.
--- NOTE | 2020-06-14 12:11 | P.PN ---
Subjective Progress Note Date: 06/14/20 HISTORY OF PRESENT ILLNESS This is a 20-year-old male patient of Dr. Ugalde with past medical history of with past medical history of seasonal ALLERGIES, supraventricular tachycardia status post ablation with Dr. Sharma in January 2020, fatty liver and follows with GI, morbid obesity, obstructive sleep apnea with CPAP, tobacco use and dependence, alcohol abuse. Patient gives history of weight loss 747 pounds over the past 2 years and is currently on a plateau. He states he lost the first 100 pounds by intermittent fasting and then the past 50 pounds with eating 3 meals a day. He states he normally walks for exercise spot on Friday he decided to lift weights and did so for 1-1/2 hours on his first time. He felt like he pulled a bicep muscle. He was feeling lightheaded. Patient apparently also had vision changes and headache. He states that his urine was orange but most recently had started to lighten up secondary to IV fluids. Liver ultrasound in March 2020 revealed liver is heterogeneous. Finding is nonspecific can be seen with hepatic steatosis or hepatitis. Patient has also been taking Motrin 600 mg twice daily. Patient came into [facility] emergency center for evaluation. Initial blood pressure 159/105 and repeated 117/73, heart rate 107, pulse ox 98% on room air. CAT scan of the brain was negative. Ultrasound of the liver rev ealed similar findings from March. Possible hepatic steatosis, hepatocellular disease. Lab work revealed creatinine 0.94, total bilirubin 1.5, AST 1175, ALT 223, alkaline phosphatase 47. The patient was started on IV fluids, admitted to the MedSur floor and consult with GI. 06/13: Yesterday, CK level came back at 7332. Repeat this morning is still pending. CBC is unremarkable, electrolytes renal function are within normal limits. Total bilirubin 2.1, AST 750, ALT 216, alkaline phosphatase 39. Hepatitis panel is negative. Patient has been seen by GI and follows in their office. Elevated liver enzymes are thought to be related to rhabdomyolysis. Full liver serology has been ordered. Patient is currently tolerating diet. He remains on IV fluids. His blood pressure has been elevated for which hydralazine will be ordered as scheduled and as needed. He has been afebrile, heart rate 98, blood pressure 146/91, pulse ox 100% on room air. 06/14: Yesterday CK came back at greater than 7800 and repeated today at greater than 7800. Electrolytes renal function are all within normal limits. Total bilirubin 1.8, AST 511, AST 174 and alkaline phosphatase 34. Overall all liver function tests are improving. We will add in a consult for nephrology. Patient states that he is feeling much better today. Repeat LDH ordered. IV fluids of been increased to 200 MLS per hour per nephrology and avoid nephrotoxins. REVIEW OF SYSTEMS Constitutional: No fever, no chills, no night sweats. No weight change. Report weakness, fatigue or lethargy-improving. No daytime sleepiness. EENT: Reports headache. Reports blurred vision or double vision, no loss of vision. No loss of Hearing, no ringing in the ears, no dizziness. No nasal drainage or congestion. No epistaxis. No sore throat. Lungs: No shortness of breath, cough, no sputum production. No wheezing. Cardiovascular: No chest pain, no lower extremity edema. No palpitations. No paroxysmal nocturnal dyspnea. No orthopnea. No lightheadedness or dizziness. No syncopal episodes. Abdominal: No abdominal pain. No nausea, vomiting. No diarrhea. No constipation. No bloody or tarry stools. No loss of appetite. Genitourinary: No dysuria, increased frequency, urgency. No urinary retention. Musculoskeletal: No myalgias. No muscle weakness, no gait dysfunction, no frequent falls. No back pain. No neck pain. Integumentary: No wounds, no lesions. No rash or pruritus. No unusual brui sing. No change in hair or nails. Neurologic: No aphasia. No facial droop. No change in mentation. No headache. No paresthesia. Psychiatric: No depression. No anxiety. Endocrine: No abnormal blood sugars. PHYSICAL EXAMINATION Gen: This is a 20-year-old morbidly obese male. He is sitting up in bed and appears to be comfortable. HEENT: Head is atraumatic, normocephalic. Pupils equal, round. Sclerae is anicteric. NECK: Supple. No JVD. No lymphadenopathy. No thyromegaly. LUNGS: Clear to auscultation. No wheezes or rhonchi. No intercostal retraction s. HEART: Regular rate and rhythm. No murmur. ABDOMEN: Soft. Bowel sounds are present. No masses. No tenderness. No CVA tenderness. EXTREMITIES: No pedal edema. No calf tenderness. Dorsalis pedis palpable bilaterally. NEUROLOGICAL: Patient is awake, alert and oriented x3. Cranial nerves 2 through 12 are grossly intact. ASSESSMENT AND PLAN 1. Rhabdomyolysis, POA. Continue IV fluids, regular diet. Repeat CK tomorrow. Consult with nephrology appreciated. IV fluids increased to 200 MLS per hour 2. Elevated liver function test with history of fatty liver disease under the care of GI. Consult with GI appreciated. Continue IV fluids increased to 200 cc per hour. Serology testing has been ordered. Hepatitis panel negative. 3. Migraine headache, stable. 4. History of SVT status post ablation, stable. 5. Seasonal ALLERGIES. 6. Morbid obesity status post weight loss of 147 pounds over 2 years. 7. Tobacco use and dependence. Nicotine patch. 8. Alcohol abuse, stable. 9. ADHD, OCD. 10. Hypertension. Patient started on hydralazine 25 mg twice daily and as needed. 11. GI prophylaxis. Protonix. 12. DVT prophylaxis. Early ambulation. Discharge plan Home in the next 24 hours. Impression and plan of care have been directed as dictated by the signing physician. Nelia Black nurse practitioner acting as scribe for signing physician. Objective - Vital Signs Vital signs: Vital Signs Temp 97.7 F 06/14/20 05:00 Pulse 98 06/14/20 05:00 Resp 20 06/14/20 05:00 BP 117/75 06/14/20 05:00 Pulse Ox 98 06/14/20 05:00 Intake & Output 06/13/20 06/14/20 06/14/20 18:59 06:59 18:59 Intake Total 1560 Balance 1560 Intake: Intake, IV Titration 1560 Amount Sodium Chloride 0.9% 1, 1560 000 ml @ 130 mls/hr IV . Q7H42M [facility] Rx#:[id number] Other: Voiding Method Toilet Toilet # Voids 2 2 - Labs CBC & Chem 7: 06/13/20 04:52 06/14/20 05:02 Labs: Abnormal Lab Results - Last 24 Hours (Table) 06/12/20 06/13/20 06/13/20 Range/Units 12:37 04:52 04:52 Total Bilirubin (0.2-1.2) mg/dL AST (14-35) U/L ALT (10-49) U/L Alkaline Phosphatase (41-126) U/L Creatine Kinase 7332 H* (35-294) Total Protein (6.2-8.2) g/dL Total Protein (PEP) 5.8 L (6.2-8.2) g/dL Ceruloplasmin 19.8 L (20.0-60.0) mg/dL CMV IgG Ab Reactive H (Non-Reactive) HSV I IgG Ab 1.20 H (< or = 0.90) HSV II IgG 2.96 H (< or = 0.90) 06/13/20 06/13/20 Range/Units 04:52 04:52 Total Bilirubin 2.1 H (0.2-1.2) mg/dL AST 750 H (14-35) U/L ALT 216 H (10-49) U/L Alkaline Phosphatase 39 L (41-126) U/L Creatine Kinase >7800 H* (35-294) Total Protein 5.8 L (6.2-8.2) g/dL Total Protein (PEP) (6.2-8.2) g/dL Ceruloplasmin (20.0-60.0) mg/dL CMV IgG Ab (Non-Reactive) HSV I IgG Ab (< or = 0.90) HSV II IgG (< or = 0.90)
--- NOTE | 2020-06-14 12:19 | P.PN ---
Subjective Progress Note Date: 06/14/20 Principal diagnosis: Elevated liver enzymes The patient was seen and examined at the bedside. The patient states he slept much better yesterday evening. He states he is feeling better overall. He denies any abdominal pain, nausea, or vomiting. The patient's CK level came jamel k at >7800. Total bilirubin 1.8, AST 511, ALT 174, alkaline phosphatase 34. Hepatitis panel is negative. Liver serologies as well as viral serologies are negative. The patient follows with Kala Middleton for history of fatty liver and elevated liver enzymes. Elevated liver enzymes are thought to be related to rhabdomyolysis. Patient is currently tolerating diet. He remains on IV fluids. His blood pressure has been elevated for which hydralazine will be ordered as scheduled and as needed. Neurology has been consulted, IV fluids are increased to 200 miles per hour. Repeat labs in the morning. Objective - Vital Signs Vital signs: Vital Signs Temp 98.1 F 06/14/20 11:08 Pulse 92 06/14/20 11:08 Resp 20 06/14/20 11:08 BP 158/81 06/14/20 11:08 Pulse Ox 98 06/14/20 11:08 Intake & Output 06/13/20 06/14/20 06/14/20 18:59 06:59 18:59 Intake Total 1560 1040 Balance 1560 1040 Intake: Intake, IV Titration 1560 1040 Amount Sodium Chloride 0.9% 1, 1560 1040 000 ml @ 200 mls/hr IV . Q5H [facility] Rx#:[id number] Other: Voiding Method Toilet Toilet Toilet # Voids 2 2 - Exam General appearance: The patient is alert, oriented, in no acute distress. Obese. HET: Head is normocephalic and atraumatic. Conjunctiva pink. Sclera anicteric. Neck: Supple without lymphadenopathy. Abdomen: Soft, obese, nontender, nondistended with bowel sounds. No guarding or rigidity. Extremities: Normal skin color and turgor. No pedal edema Neurological: No focal deficits. Alert and oriented 3. Appears anxious. - Labs CBC & Chem 7: 06/13/20 04:52 06/14/20 05:02 Labs: Abnormal Lab Results - Last 24 Hours (Table) 06/13/20 06/13/20 06/13/20 Range/Units 04:52 04:52 04:52 Total Bilirubin (0.2-1.2) mg/dL AST (14-35) U/L ALT (10-49) U/L Alkaline Phosphatase (41-126) U/L Lactate Dehydrogenase (120-246) U/L Creatine Kinase >7800 H* (35-257) U/L Total Protein (6.2-8.2) g/dL Albumin (3.80-4.90) g/dL Ceruloplasmin 19.8 L (20.0-60.0) mg/dL CMV IgG Ab Reactive H (Non-Reactive) HSV I IgG Ab 1.20 H (< or = 0.90) HSV II IgG 2.96 H (< or = 0.90) 06/14/20 06/14/20 Range/Units 05:02 05:02 Total Bilirubin 1.8 H (0.2-1.2) mg/dL AST 511 H (14-35) U/L ALT 174 H (10-49) U/L Alkaline Phosphatase 34 L (41-126) U/L Lactate Dehydrogenase 501 H (120-246) U/L Creatine Kinase >7800 H* (35-257) U/L Total Protein 5.3 L (6.2-8.2) g/dL Albumin 3.60 L (3.80-4.90) g/dL Ceruloplasmin (20.0-60.0) mg/dL CMV IgG Ab (Non-Reactive) HSV I IgG Ab (< or = 0.90) HSV II IgG (< or = 0.90) Assessment and Plan (1) Elevated liver enzymes Narrative/Plan: This is a 20-year-old male with a history of obesity, nonalcoholic fatty liver disease, supraventricular tachycardia status post ablation who presented to the hospital due to weakness and headache. The patient reports recently working out and noticed a headache, weakness and dark urine. He had markedly elevated liver enzymes on presentation predominantly in a hepatocellular pattern with AST 1175, ALT 223, total bilirubin 1.5 and alkaline trans-phosphatase 47. Creatinine kinase is markedly elevated. Suspicion is for elevated liver enzymes secondary to rhabdomyolysis. He does have a history of nonalcoholic fatty liver disease. Ultrasound the abdomen is consistent with nonalcoholic fatty liver disease with no gallbladder or biliary pathology. The liver serology as ordered to rule out other etiology of elevated liver enzymes, and pending results. Hepatitis A, B, and C are all negative. Liver serologies and viral serologies negative date. Liver enzymes improving, CK still elevated at greater than 7800. Current Visit: Yes Status: Acute Code(s): R74.8 - ABNORMAL LEVELS OF OTHER SERUM ENZYMES SNOMED Code(s): 425719020 (2) Nonalcoholic fatty liver disease Current Visit: Yes Status: Acute Code(s): K76.0 - FATTY (CHANGE OF) LIVER, NOT ELSEWHERE CLASSIFIED SNOMED Code(s): 271775081 Plan: 1. Supportive care 2. Advance diet as tolerated 3. Continue to monitor CMP, INR, creatinine kinase 4. Monitor for any signs or symptoms of encephalopathy 5. Avoid hepatotoxic medications 6. Full liver serologies ordered, negative to date 7. Hepatitis panel and viral serologies negative 8. IV fluids increased to 200 mL/hr per recommendations from nephrology 9. We will continue to follow. The impression and plan of care has been dictated as directed. I performed a history and examination of this patient, discussed the same with the dictator. I agree with the dictator's note ,documented as a scribe. Any additional findings or plans will be noted.
[2020-06-14 12:49] LABS: Liver/Kidney Microsome Antibod 1.6 UNITS (<=20)
[2020-06-14 13:32] LABS: Albumin 3.62 g/dL (3.80-4.90)
[2020-06-14 14:58] LABS: Creatine Kinase >7800 U/L (35-257)
[2020-06-14] MEDS: MELATONIN 3 MG TABLET PO SCH (21:40)
[2020-06-15] MEDS: SODIUM CHLORIDE 0.9% 1,000 ML IV SCH ×5 (02:48→21:08)
[2020-06-15 05:45] LABS: Creatine Kinase 15945
[2020-06-15 06:16] LABS: African American GFR (CKD) >90 (>60 ml/min/1.73 sqM); Anion Gap 5 mmol/L; Blood Urea Nitrogen 9 mg/dL (9-20); Calcium 8.7 mg/dL (8.4-10.2); Carbon Dioxide 24 mmol/L (22-30); Chloride 107 mmol/L (98-107); Glucose 70 mg/dL (74-99); Magnesium 1.9 mg/dL (1.6-2.3); Non-African American GFR(CKD) >90 (>60 ml/min/1.73 sqM); Potassium 3.8 mmol/L (3.5-5.1); Sodium 136 mmol/L (137-145)
[2020-06-15] MEDS: PANTOPRAZOLE 40 MG TABLET PO SCH (08:49)
[2020-06-15] MEDS: NICOTINE 14MG/24HR PATCH TRANSDERM SCH ×2 (08:54→08:57)
[2020-06-15] MEDS: hydrALAZINE HCL 25 MG TAB PO SCH ×2 (08:55→21:35)
--- NOTE | 2020-06-15 10:05 | P.PN ---
Subjective Patient is seen in follow-up for rhabdomyolysis. CK levels trending down. He is maintained on normal saline at 200 mL an hour. No hematuria or dysuria. Good urine output. Vital signs are stable. General: The patient appeared well nourished and normally developed. HEENT: Head exam is unremarkable. Neck is without jugular venous distension. LUNGS: Lungs are clear to auscultation and percussion. Breath sounds decreased. HEART: Rate and Rhythm are regular. First and second heart sounds normal. No murmurs, rubs or gallops. ABDOMEN: Abdominal exam reveals normal bowel sounds. Non-tender and non- distended. EXTREMITITES: No clubbing, cyanosis, or edema. Objective - Vital Signs Vital signs: Vital Signs Temp 97.5 F L 06/15/20 05:00 Pulse 106 H 06/15/20 08:59 Resp 16 06/15/20 05:00 BP 147/76 06/15/20 08:59 Pulse Ox 99 06/15/20 05:00 Intake & Output 06/14/20 06/15/20 06/15/20 18:59 06:59 18:59 Intake Total 1040 2200 Balance 1040 2200 Intake: Intake, IV Titration 1040 2200 Amount Sodium Chloride 0.9% 1, 1040 2200 000 ml @ 200 mls/hr IV . Q5H [facility] Rx#:[id number] Other: Voiding Method Toilet Toilet Toilet # Voids 2 0 - Labs CBC & Chem 7: 06/13/20 04:52 06/15/20 03:43 Labs: Abnormal Lab Results - Last 24 Hours (Table) 06/13/20 06/13/20 06/14/20 Range/Units 04:52 04:52 05:02 Sodium (137-145) mmol/L Glucose (74-99) mg/dL Lactate Dehydrogenase (120-246) U/L Creatine Kinase >7800 H* >7800 H* (35-257) U/L Albumin (PEP) 3.62 L (3.80-4.90) g/dL Beta Globulins 0.56 L (0.60-1.30) g/dL Gamma Globulins 0.60 L (0.70-1.50) g/dL 10/21/20 10/21/20 10/22/20 Range/Units 05:02 12:15 03:43 Sodium 136 L (137-145) mmol/L Glucose 70 L (74-99) mg/dL Lactate Dehydrogenase 501 H (120-246) U/L Creatine Kinase 77375 H* (35-257) U/L Albumin (PEP) (3.80-4.90) g/dL Beta Globulins (0.60-1.30) g/dL Gamma Globulins (0.70-1.50) g/dL Assessment and Plan Plan: Assessment: 1. Rhabdomyolysis secondary to extreme exercise. CK level trending down. UA reveals large blood without any RBCs suggestive of myoglobinuria. 2. History of diabetes. Now resolved after weight loss. Plan: Decrease rate of normal saline to 1 50 mL an hour. Repeat CK level in the morning. Avoid nephrotoxins. Continue to monitor renal function and urine output. Potential discharge tomorrow.
[2020-06-15 13:29] LABS: Albumin 3.2 g/dL (3.5-5.0); Albumin/Globulin Ratio 1.5; Bilirubin,Unconjugated 1.3 mg/dL (0.0-1.1); Globulin 2.2 g/dL; Total Bilirubin 1.4 mg/dL (0.2-1.3); Total Protein 5.4 g/dL (6.3-8.2)
--- NOTE | 2020-06-15 13:45 | P.PN ---
Subjective Progress Note Date: 06/15/20 Principal diagnosis: Elevated liver enzymes The patient was seen and examined at the bedside. He states he is feeling well today. He denies any abdominal pain, nausea, or vomiting. [place] [address] which is down from yesterday evening. Total bilirubin 1.4, AST 409, ALT 155, alkaline phosphatase 32. Hepatitis panel is negative. Liver serologies as well as viral serologies are negative. The patient follows with Kala Middleton for history of fatty liver and elevated liver enzymes. Elevated liver enzymes are thought to be related to rhabdomyolysis. Patient is currently tolerating diet. He remains on IV fluids. His blood pressure has been elevated for which hydralazine will be ordered as scheduled and as needed. Neurology has been consulted, IV fluids are decreased to 150 ML per hour. Repeat labs in the morning. Objective - Vital Signs Vital signs: Vital Signs Temp 98.1 F 06/15/20 12:29 Pulse 88 06/15/20 12:29 Resp 20 06/15/20 12:29 BP 118/73 06/15/20 12:29 Pulse Ox 98 06/15/20 12:29 Intake & Output 06/14/20 06/15/20 06/15/20 18:59 06:59 18:59 Intake Total 1040 2200 Balance 1040 2200 Intake: Intake, IV Titration 1040 2200 Amount Sodium Chloride 0.9% 1, 1040 2200 000 ml @ 200 mls/hr IV . Q5H [facility] Rx#:[id number] Other: Voiding Method Toilet Toilet Toilet # Voids 2 0 - Exam General appearance: The patient is alert, oriented, in no acute distress. Obese. HET: Head is normocephalic and atraumatic. Conjunctiva pink. Sclera anicteric. Neck: Supple without lymphadenopathy. Abdomen: Soft, obese, nontender, nondistended with bowel sounds. No guarding or rigidity. Extremities: Normal skin color and turgor. No pedal edema Neurological: No focal deficits. Alert and oriented 3. Appears anxious. - Labs CBC & Chem 7: 06/13/20 04:52 06/15/20 03:43 Labs: Abnormal Lab Results - Last 24 Hours (Table) 06/13/20 06/14/20 06/14/20 Range/Units 04:52 05:02 12:15 Sodium (137-145) mmol/L Glucose (74-99) mg/dL Total Bilirubin (0.2-1.3) mg/dL Unconjugated Bilirubin (0.0-1.1) mg/dL AST (17-59) U/L ALT (4-49) U/L Alkaline Phosphatase (38-126) U/L Creatine Kinase >7800 H* >7800 H* 22374 H* (35-257) U/L Total Protein (6.3-8.2) g/dL Albumin (3.5-5.0) g/dL 06/15/20 06/15/20 Range/Units 03:43 03:43 Sodium 136 L (137-145) mmol/L Glucose 70 L (74-99) mg/dL Total Bilirubin 1.4 H (0.2-1.3) mg/dL Unconjugated Bilirubin 1.3 H (0.0-1.1) mg/dL AST 409 H (17-59) U/L ALT 155 H (4-49) U/L Alkaline Phosphatase 32 L (38-126) U/L Creatine Kinase (35-257) U/L Total Protein 5.4 L (6.3-8.2) g/dL Albumin 3.2 L (3.5-5.0) g/dL Assessment and Plan (1) Elevated liver enzymes Narrative/Plan: This is a 20-year-old male with a history of obesity, nonalcoholic fatty liver disease, supraventricular tachycardia status post ablation who presented to the hospital due to weakness and headache. The patient reports recently working out and noticed a headache, weakness and dark urine. He had markedly elevated liver enzymes on presentation predominantly in a hepatocellular pattern with AST 1175, ALT 223, total bilirubin 1.5 and alkaline trans-phosphatase 47. Creatinine kinase is markedly elevated. Suspicion is for elevated liver enzymes secondary to rhabdomyolysis. He does have a history of nonalcoholic fatty liver disease. Ultrasound the abdomen is consistent with nonalcoholic fatty liver disease with no gallbladder or biliary pathology. The liver serology as ordered to rule out other etiology of elevated liver enzymes, and pending results. Hepatitis A, B, and C are all negative. Liver serologies and viral serologies negative date. Liver enzymes improving, CK still elevated but gradually improving. Current Visit: Yes Status: Acute Code(s): R74.8 - ABNORMAL LEVELS OF OTHER SERUM ENZYMES SNOMED Code(s): 143040835 (2) Nonalcoholic fatty liver disease Current Visit: Yes Status: Acute Code(s): K76.0 - FATTY (CHANGE OF) LIVER, NOT ELSEWHERE CLASSIFIED SNOMED Code(s): 779684212 Plan: 1. Supportive care 2. Advance diet as tolerated 3. Continue to monitor CMP, INR, creatinine kinase 4. Monitor for any signs or symptoms of encephalopathy 5. Avoid hepatotoxic medications 6. Full liver serologies ordered, negative to date 7. Hepatitis panel and viral serologies negative 8. IV fluids decreased to 150 mL/hr per recommendations from nephrology 9. From a gastroenterology standpoint patient may be discharged home when otherwise medically clear. Patient to follow-up with Greg WHITLOCK and 1-2 weeks. The impression and plan of care has been dictated as directed. I performed a history and examination of this patient, discussed the same with the dictator. I agree with the dictator's note ,documented as a scribe. Any additional findings or plans will be noted.
--- NOTE | 2020-06-15 15:47 | P.PN ---
Subjective Progress Note Date: 06/15/20 HISTORY OF PRESENT ILLNESS This is a 20-year-old male patient of Dr. Ugalde with past medical history of with past medical history of seasonal ALLERGIES, supraventricular tachycardia status post ablation with Dr. Sharma in January 2020, fatty liver and follows with GI, morbid obesity, obstructive sleep apnea with CPAP, tobacco use and dependence, alcohol abuse. Patient gives history of weight loss 747 pounds over the past 2 years and is currently on a plateau. He states he lost the first 100 pounds by intermittent fasting and then the past 50 pounds with eating 3 meals a day. He states he normally walks for exercise spot on Friday he decided to lift weights and did so for 1-1/2 hours on his first time. He felt like he pulled a bicep muscle. He was feeling lightheaded. Patient apparently also had vision changes and headache. He states that his urine was orange but most recently had started to lighten up secondary to IV fluids. Liver ultrasound in March 2020 revealed liver is heterogeneous. Finding is nonspecific can be seen with hepatic steatosis or hepatitis. Patient has also been taking Motrin 600 mg twice daily. Patient came into [facility] emergency center for evaluation. Initial blood pressure 159/105 and repeated 117/73, heart rate 107, pulse ox 98% on room air. CAT scan of the brain was negative. Ultrasound of the liver rev ealed similar findings from March. Possible hepatic steatosis, hepatocellular disease. Lab work revealed creatinine 0.94, total bilirubin 1.5, AST 1175, ALT 223, alkaline phosphatase 47. The patient was started on IV fluids, admitted to the [facility] floor and consult with GI. 06/13: Yesterday, CK level came back at 7332. Repeat this morning is still pending. CBC is unremarkable, electrolytes renal function are within normal limits. Total bilirubin 2.1, AST 750, ALT 216, alkaline phosphatase 39. Hepatitis panel is negative. Patient has been seen by GI and follows in their office. Elevated liver enzymes are thought to be related to rhabdomyolysis. Full liver serology has been ordered. Patient is currently tolerating diet. He remains on IV fluids. His blood pressure has been elevated for which hydralazine will be ordered as scheduled and as needed. He has been afebrile, heart rate 98, blood pressure 146/91, pulse ox 100% on room air. 06/14: Yesterday CK came back at greater than 7800 and repeated today at greater than 7800. Electrolytes renal function are all within normal limits. Total bilirubin 1.8, AST 511, AST 174 and alkaline phosphatase 34. Overall all liver function tests are improving. We will add in a consult for nephrology. Patient states that he is feeling much better today. Repeat LDH ordered. IV fluids of been increased to 200 MLS per hour per nephrology and avoid nephrotoxins. 06/15: Repeat lab work reveals sodium 136 CK 15,945, improved from last evening at 29,648. Total bilirubin 1.4, AST 409, ALT 155, alkaline phosphatase 32. Plan to monitor overnight and plan for discharge tomorrow. Patient denies any new complaints today. He is anxious to go home. REVIEW OF SYSTEMS Constitutional: No fever, no chills, no night sweats. No weight change. Report weakness, fatigue or lethargy-improving. No daytime sleepiness. EENT: Reports headache. Reports blurred vision or double vision, no loss of vision. No loss of Hearing, no ringing in the ears, no dizziness. No nasal drainage or congestion. No epistaxis. No sore throat. Lungs: No shortness of breath, cough, no sputum production. No wheezing. Cardiovascular: No chest pain, no lower extremity edema. No palpitations. No paroxysmal nocturnal dyspnea. No orthopnea. No lightheadedness or dizziness. No syncopal episodes. Abdominal: No abdominal pain. No nausea, vomiting. No diarrhea. No constipation. No bloody or tarry stools. No loss of appetite. Genitourinary: No dysuria, increased frequency, urgency. No urinary retention. Musculoskeletal: No myalgias. No muscle weakness, no gait dysfunction, no frequent falls. No back pain. No neck pain. Integumentary: No wounds, no lesions. No rash or pruritus. No unusual bruising. No change in hair or nails. Neurologic: No aphasia. No facial droop. No change in mentation. No headache. No paresthesia. Psychiatric: No depression. No anxiety. Endocrine: No abnormal blood sugars. PHYSICAL EXAMINATION Gen: This is a 20-year-old morbidly obese male. He is sitting up in bed and appears to be comfortable. HEENT: Head is atraumatic, normocephalic. Pupils equal, round. Sclerae is anicteric. NECK: Supple. No JVD. No lymphadenopathy. No thyromegaly. LUNGS: Clear to auscultation. No wheezes or rhonchi. No intercostal retractions. HEART: Regular rate and rhythm. No murmur. ABDOMEN: Soft. Bowel sounds are present. No masses. No tenderness. No CVA tenderness. EXTREMITIES: No pedal edema. No calf tenderness. Dorsalis pedis palpable bila terally. NEUROLOGICAL: Patient is awake, alert and oriented x3. Cranial nerves 2 through 12 are grossly intact. ASSESSMENT AND PLAN 1. Rhabdomyolysis, POA. Continue IV fluids, regular diet. Repeat CK tomorrow. Consult with nephrology appreciated. IV fluids decreased to 150 MLS per hour 2. Elevated liver function test with history of fatty liver disease under the c are of GI. Consult with GI appreciated. Continue IV fluids increased to 200 cc per hour. Serology testing has been ordered. Hepatitis panel negative. 3. Migraine headache, stable. 4. History of SVT status post ablation, stable. 5. Seasonal ALLERGIES. 6. Morbid obesity status post weight loss of 147 pounds over 2 years. 7. Tobacco use and dependence. Nicotine patch. 8. Alcohol abuse, stable. 9. ADHD, OCD. 10. Hypertension. Patient started on hydralazine 25 mg twice daily and as needed. 11. GI prophylaxis. Protonix. 12. DVT prophylaxis. Early ambulation. Discharge plan Home in the next 24 hours. Impression and plan of care have been directed as dictated by the signing physician. Nelia Black nurse practitioner acting as scribe for signing physician. Objective - Vital Signs Vital signs: Vital Signs Temp 97.5 F L 06/15/20 05:00 Pulse 83 06/15/20 05:00 Resp 16 06/15/20 05:00 BP 97/61 06/15/20 05:00 Pulse Ox 99 06/15/20 05:00 Intake & Output 06/14/20 06/15/20 06/15/20 18:59 06:59 18:59 Intake Total 1040 2200 Balance 1040 2200 Intake: Intake, IV Titration 1040 2200 Amount Sodium Chloride 0.9% 1, 1040 2200 000 ml @ 200 mls/hr IV . Q5H [facility] Rx#:[id number] Other: Voiding Method Toilet Toilet # Voids 2 0 - Labs CBC & Chem 7: 06/13/20 04:52 06/15/20 03:43 Labs: Abnormal Lab Results - Last 24 Hours (Table) 06/13/20 06/13/20 06/14/20 Range/Units 04:52 04:52 05:02 Sodium (137-145) mmol/L Glucose (74-99) mg/dL Total Bilirubin 1.8 H (0.2-1.2) mg/dL AST 511 H (14-35) U/L ALT 174 H (10-49) U/L Alkaline Phosphatase 34 L (41-126) U/L Lactate Dehydrogenase (120-246) U/L Creatine Kinase >7800 H* >7800 H* (35-257) U/L Total Protein 5.3 L (6.2-8.2) g/dL Albumin 3.60 L (3.80-4.90) g/dL Albumin (PEP) 3.62 L (3.80-4.90) g/dL Beta Globulins 0.56 L (0.60-1.30) g/dL Gamma Globulins 0.60 L (0.70-1.50) g/dL 06/14/20 06/14/20 06/15/20 Range/Units 05:02 12:15 03:43 Sodium 136 L (137-145) mmol/L Glucose 70 L (74-99) mg/dL Total Bilirubin (0.2-1.2) mg/dL AST (14-35) U/L ALT (10-49) U/L Alkaline Phosphatase (41-126) U/L Lactate Dehydrogenase 501 H (120-246) U/L Creatine Kinase 28081 H* (35-257) U/L Total Protein (6.2-8.2) g/dL Albumin (3.80-4.90) g/dL Albumin (PEP) (3.80-4.90) g/dL Beta Globulins (0.60-1.30) g/dL Gamma Globulins (0.70-1.50) g/dL
[2020-06-15] MEDS: MELATONIN 3 MG TABLET PO SCH (21:08)
[2020-06-15 21:23] VITALS: PULSE 77; RESP 16
[2020-06-16] MEDS: SODIUM CHLORIDE 0.9% 1,000 ML IV SCH (03:12)
[2020-06-16 05:23] VITALS: BP 102/61; TEMP 97.4
--- NOTE | 2020-06-16 08:01 | P.DS ---
Providers Date of admission: 06/13/20 09:12 Expected date of discharge: 06/16/20 Attending physician: Jules Silva Consults: 06/12/20 07:45 Consult Physician Routine Consulting Provider: Gustavo Mccray Consult Reason/Comments: elevated transaminases Do you want consulting provider notified?: Already Contacted 06/14/20 08:05 Consult Physician Routine Consulting Provider: Hiro Thomas Consult Reason/Comments: Rhabdo Do you want consulting provider notified?: Yes Primary care physician: [facility] Course: HISTORY OF PRESENT ILLNESS This is a 20-year-old male patient of Dr. Ugalde with past medical history of with past medical history of seasonal ALLERGIES, supraventricular tachycardia status post ablation with Dr. Sharma in January 2020, fatty liver and follows with GI, morbid obesity, obstructive sleep apnea with CPAP, tobacco use and dependence, alcohol abuse. Patient gives history of weight loss 747 pounds over the past 2 years and is currently on a plateau. He states he lost the first 100 pounds by intermittent fasting and then the past 50 pounds with eating 3 meals a day. He states he normally walks for exercise spot on Friday he decided to lift weights and did so for 1-1/2 hours on his first time. He felt like he pulled a bicep muscle. He was feeling lightheaded. Patient apparently also had vision changes and headache. He states that his urine was orange but most recently had started to lighten up secondary to IV fluids. Liver ultrasound in March 2020 revealed liver is heterogeneous. Finding is nonspecific can be seen with hepatic steatosis or hepatitis. Patient has also been taking Motrin 600 mg twice daily. Patient came into [facility] emergency center for evaluation. Initial blood pressure 159/105 and repeated 117/73, heart rate 107, pulse ox 98% on room air. CAT scan of the brain was negative. Ultrasound of the liver revealed similar findings from March. Possible hepatic steatosis, hepatocellular disease. Lab work revealed creatinine 0.94, total bilirubin 1.5, AST 1175, ALT 223, alkaline phosphatase 47. The patient was started on IV fluids, admitted to the [facility] floor and consult with GI. 06/13: Yesterday, CK level came back at 7332. Repeat this morning is still pending. CBC is unremarkable, electrolytes renal function are within normal limits. Total bilirubin 2.1, AST 750, ALT 216, alkaline phosphatase 39. Hepatitis panel is negative. Patient has been seen by GI and follows in their office. Elevated liver enzymes are thought to be related to rhabdomyolysis. Full liver serology has been ordered. Patient is currently tolerating diet. He remains on IV fluids. His blood pressure has been elevated for which hydralazine will be ordered as scheduled and as needed. He has been afebrile, heart rate 98, blood pressure 146/91, pulse ox 100% on room air. 06/14: Yesterday CK came back at greater than 7800 and repeated today at greater than 7800. Electrolytes renal function are all within normal limits. Total bilirubin 1.8, AST 511, AST 174 and alkaline phosphatase 34. Overall all liver function tests are improving. We will add in a consult for nephrology. Patient states that he is feeling much better today. Repeat LDH ordered. IV fluids of been increased to 200 MLS per hour per nephrology and avoid nephrotoxins. 06/15: Repeat lab work reveals sodium 136 CK 15,945, improved from last evening at 29,648. Total bilirubin 1.4, AST 409, ALT 155, alkaline phosphatase 32. Plan to monitor overnight and plan for discharge tomorrow. Patient denies any new complaints today. He is anxious to go home. 06/16: Patient has been afebrile, heart rate 77, blood pressure 102/61, pulse ox 97% on room air. Repeat blood work reveals total bilirubin 2.1, AST 253, ALT 146, alkaline phosphatase 35, CK 6829. Discuss case with Dr. Thomas and he has cleared the patient for discharge. ASSESSMENT AND PLAN 1. Rhabdomyolysis, POA. 2. Elevated liver function test with history of fatty liver disease under the care of GI. 3. Migraine headache, stable. 4. History of SVT status post ablation, stable. 5. Seasonal ALLERGIES. 6. Morbid obesity status post weight loss of 147 pounds over 2 years. 7. Tobacco use and dependence. 8. Alcohol abuse, stable. 9. ADHD, OCD. 10. Hypertension. Discharge plan Home Impression and plan of care have been directed as dictated by the signing physician. Nelia Black nurse practitioner acting as scribe for signing physician. Patient Condition at Discharge: Good Plan - Discharge Summary New Discharge Prescriptions: New Nicotine 14Mg/24Hr Patch [Habitrol] 1 patch TRANSDERM DAILY #30 patch Continue Loratadine [Claritin] 10 mg PO DAILY Discontinued Ibuprofen 600 mg PO Q6H PRN PRN Reason: Pain Discharge Medication List Loratadine [Claritin] 10 mg PO DAILY 06/12/20 [History] Nicotine 14Mg/24Hr Patch [Habitrol] 1 patch TRANSDERM DAILY #30 patch 06/16/20 [Rx] Follow up Appointment(s)/Referral(s): Farhat Ugalde MD [Primary Care Provider] - 1 Week (The office is closed please call and make follow up appointment on friday the office is not open on .) Hiro Thomas DO [STAFF PHYSICIAN] - 07/06/20 11:20 am Patient Instructions/Handouts: Rhabdomyolysis (DC) Activity/Diet/Wound Care/Special Instructions: avoid exercising for 10-14 days regular heart healthy diet as tolerated maintain oral hydration Discharge Disposition: HOME SELF-CARE
[2020-06-16] MEDS: PANTOPRAZOLE 40 MG TABLET PO SCH (08:26)
[2020-06-16] MEDS: hydrALAZINE HCL 25 MG TAB PO SCH (08:26)
[2020-06-16] MEDS: NICOTINE 14MG/24HR PATCH TRANSDERM SCH (08:26)
[2020-06-16 08:51] LABS: Creatine Kinase 6829 U/L (55-170)
[2020-06-16 08:52] LABS: ALT 146 U/L (4-49); AST 253 U/L (17-59); African American GFR (CKD) >90 (>60 ml/min/1.73 sqM); Albumin 3.8 g/dL (3.5-5.0); Albumin/Globulin Ratio 1.6; Alkaline Phosphatase 35 U/L (38-126); Anion Gap 6 mmol/L; Blood Urea Nitrogen 8 mg/dL (9-20); Calcium 9.1 mg/dL (8.4-10.2); Carbon Dioxide 28 mmol/L (22-30); Chloride 105 mmol/L (98-107); Globulin 2.4 g/dL; Glucose 77 mg/dL (74-99); Non-African American GFR(CKD) >90 (>60 ml/min/1.73 sqM); Potassium 4.2 mmol/L (3.5-5.1); Sodium 139 mmol/L (137-145); Total Bilirubin 2.1 mg/dL (0.2-1.3); Total Protein 6.2 g/dL (6.3-8.2)
--- NOTE | 2020-06-16 09:51 | P.PN ---
Subjective Patient is seen in follow-up for rhabdomyolysis. CK levels trending down. He is maintained on normal saline at 150 mL an hour. No hematuria or dysuria. Good urine output. Vital signs are stable. General: The patient appeared well nourished and normally developed. HEENT: Head exam is unremarkable. Neck is without jugular venous distension. LUNGS: Lungs are clear to auscultation and percussion. Breath sounds decreased. HEART: Rate and Rhythm are regular. First and second heart sounds normal. No murmurs, rubs or gallops. ABDOMEN: Abdominal exam reveals normal bowel sounds. Non-tender and non- distended. EXTREMITITES: No clubbing, cyanosis, or edema. Objective - Vital Signs Vital signs: Vital Signs Temp 97.4 F L 06/16/20 05:00 Pulse 77 06/16/20 05:00 Resp 16 06/16/20 05:00 BP 102/61 06/16/20 05:00 Pulse Ox 97 06/16/20 05:00 Intake & Output 06/15/20 06/16/20 06/16/20 18:59 06:59 18:59 Intake Total 1040 Balance 1040 Intake: Intake, IV Titration 450 Amount Sodium Chloride 0.9% 1, 450 000 ml @ 150 mls/hr IV . Q6H40M COUNTS INCLUDE 234 BEDS AT THE [facility] Rx#:[id number] Oral 590 Other: Voiding Method Toilet Toilet # Voids 2 2 - Labs CBC & Chem 7: 06/13/20 04:52 06/16/20 06:57 Labs: Abnormal Lab Results - Last 24 Hours (Table) 06/15/20 06/15/20 06/16/20 Range/Units 03:43 03:43 06:57 Sodium 136 L (137-145) mmol/L BUN 8 L (9-20) mg/dL Glucose 70 L (74-99) mg/dL Total Bilirubin 1.4 H 2.1 H (0.2-1.3) mg/dL Unconjugated Bilirubin 1.3 H (0.0-1.1) mg/dL AST 409 H 253 H (17-59) U/L ALT 155 H 146 H (4-49) U/L Alkaline Phosphatase 32 L 35 L (38-126) U/L Creatine Kinase 6829 H* (55-170) U/L Total Protein 5.4 L 6.2 L (6.3-8.2) g/dL Albumin 3.2 L (3.5-5.0) g/dL Assessment and Plan Plan: Assessment: 1. Rhabdomyolysis secondary to extreme exercise. CK level trending down. UA reveals large blood without any RBCs suggestive of myoglobinuria. 2. History of diabetes. Now resolved after weight loss. Plan: Stable to be discharged home from nephrology standpoint. Follow-up outpatient in 1-2 weeks. I advised him to avoid exercising for the next 10-14 days.
--- NOTE | 2020-06-20 03:15 | CDI ---
Documentation Clarification Form Date: 06/20/2020 From: Kevin Rodriguez Phone: If you have a question about this query, please contact Ale Lawton, Advanced Nursing Professor at [phone] between 8am and 5pm. Admit Date: 06/13/2020 Discharge Date: 06/16/2020 Patient Name: Berhane Anaya Visit Number: [id number] ATTENTION: The Clinical Documentation Specialists (CDI) and [facility] Coding Staff appreciate your assistance in clarifying documentation. Please respond to the clarification below the line at the bottom and electronically sign. The CDI & [facility] Coding staff will review the response and follow-up if needed. Please note: Queries are made part of the Legal Health Record. If you have any questions, please contact the author of this message via ITS. Dear Hiro Jovel DO., Acute renal failure was documented in the 06/14 consult note under reason. Elevated liver enzymes are thought to be related to rhabdomyolysis.Full liver serology has been ordered.Patient is currently tolerating diet.He remains on IV fluids. History/Risk Factors: obesity, MATTY, DM type 2 Current BUN/Cr/GFR: 0.94, 0.7 Treatment: Increase rate of normal saline to 200 mL an hour, IV fluids In order to capture the severity of condition, please clarify if the condition signifies: Acute kidney injury Other, please specify Unable to determine no aki MTDD
== END 2020-06-16 11:25 | disposition home or self-care (01) | DRG 558 ==
LOC: EC 03:43 → 6NMEDSUR 07:44 → OBSVTOIN 06-13 09:12
PROVIDERS: ADMIT Internal Medicine Geriatric Medicine; ATTEND Internal Medicine Geriatric Medicine
DX: M62.82 Rhabdomyolysis (principal); K76.0 Fatty (change of) liver, not elsewhere classified; E66.01 Morbid (severe) obesity due to excess calories; F10.10 Alcohol abuse, uncomplicated; G47.33 Obstructive sleep apnea (adult) (pediatric); E11.9 Type 2 diabetes mellitus without complications; J30.2 Other seasonal allergic rhinitis; I10 Essential (primary) hypertension; G43.909 Migraine, unspecified, not intractable, without status migrainosus; Z20.828 Contact with and (suspected) exposure to other viral communicable diseases; F90.9 Attention-deficit hyperactivity disorder, unspecified type; F42.9 Obsessive-compulsive disorder, unspecified; F17.200 Nicotine dependence, unspecified, uncomplicated; F41.9 Anxiety disorder, unspecified; Z79.899 Other long term (current) drug therapy; Z68.33 Body mass index [BMI] 33.0-33.9, adult
CPT/HCPCS: 36415; 76705; 80048; 80053; 80074; 80076; 81001; 82103; 82105; 82390; 82550; 83516; 83615; 83735; 84165; 85025; 85610; 85652; 86038; 86140; 86376; 86644; 86645; 86663; 86664; 86665; 86694; 86695; 86696; 87390; 99284

== ENCOUNTER 2021-02-07 21:06 | Emergency (ER) | payer OTHER ==
[2021-02-07] MEDS ORDERED: SODIUM CHLORIDE 0.9% 1,000 ML IV STA (21:32)
[2021-02-07] MEDS ORDERED: SODIUM CHLORIDE 0.9% 500 ML 500 ML IV STA (21:32)
--- NOTE | 2021-02-07 21:36 | ED ---
Chest Pain HPI - General Chief Complaint: Chest Pain Stated Complaint: Chest pain Source: patient, RN notes reviewed, old records reviewed Mode of arrival: wheelchair Limitations: no limitations - History of Present Illness Initial Comments: This is a 20-year-old male DF for evaluation patient Dese for evaluation regards to chest pain. Patient concern for recurrent SVT left-sided chest pain has been going on for weeks. Otherwise patient has no complaints no recent change in medications no fevers no nausea no vomiting no diarrhea. No shortness of breath MD Complaint: chest pain -: week(s) Onset: during rest, during exertion Pain Location: left chest Pain Radiation: none Severity: mild Severity scale (1-10): 2 Quality: sharp Consistency: intermittent Improves With: nothing Worsens With: nothing Other Symptoms: palpitations Treatments Prior to Arrival: none - Related Data Home Medications Medication Instructions Recorded Confirmed No Known Home Medications 02/07/21 02/07/21 Allergies Allergy/AdvReac Type Severity Reaction Status Date / Time No Known Allergies Allergy Verified 02/07/21 22:20 Review of Systems ROS Statement: Those systems with pertinent positive or pertinent negative responses have been documented in the HPI. ROS Other: All systems not noted in ROS Statement are negative. EKG Findings - EKG Comments: EKG Findings:: EKG is sinus rhythm 100 AR 154 QRS 76 QTC 417 Past Medical History Past Medical History: Diabetes Mellitus, Supraventricular Tachycardia (SVT) Additional Past Medical History / Comment(s): See Dr Sharma H&P, hx elevated liver enzymes, states past hx of diabetes, states A1C below 6 History of Any Multi-Drug Resistant Organisms: None Reported Past Surgical History: Ablation Additional Past Surgical History / Comment(s): OCD, HEART ABLATION Past Anesthesia/Blood Transfusion Reactions: No Reported Reaction Past Psychological History: ADD/ADHD, Anxiety Smoking Status: Current every day smoker Past Alcohol Use History: None Reported Past Drug Use History: None Reported General Exam Limitations: no limitations General appearance: alert, in no apparent distress Head exam: Present: atraumatic, normocephalic, normal inspection Eye exam: Present: normal appearance, PERRL, EOMI. Absent: scleral icterus, conjunctival injection, periorbital swelling ENT exam: Present: normal exam, mucous membranes moist Neck exam: Present: normal inspection. Absent: tenderness, meningismus, lymphadenopathy Respiratory exam: Present: normal lung sounds bilaterally. Absent: respiratory distress, wheezes, rales, rhonchi, stridor Cardiovascular Exam: Present: regular rate, normal rhythm, normal heart sounds. Absent: systolic murmur, diastolic murmur, rubs, gallop, clicks GI/Abdominal exam: Present: soft, normal bowel sounds. Absent: distended, tenderness, guarding, rebound, rigid Extremities exam: Present: normal inspection, full ROM, normal capillary refill. Absent: tenderness, pedal edema, joint swelling, calf tenderness Back exam: Present: normal inspection Neurological exam: Present: alert, oriented X3, CN II-XII intact Psychiatric exam: Present: normal affect, normal mood Skin exam: Present: warm, dry, intact, normal color. Absent: rash Course Vital Signs 02/07/21 02/07/21 02/07/21 21:08 21:24 22:56 Temperature 97.5 F L Pulse Rate 117 H 91 85 Respiratory 20 18 16 Rate Blood Pressure 159/99 157/91 139/93 O2 Sat by Pulse 98 98 99 Oximetry 02/07/21 23:37 Temperature 98.0 F Pulse Rate 81 Respiratory 18 Rate Blood Pressure 125/81 O2 Sat by Pulse 96 Oximetry - Reevaluation(s) Reevaluation #1: Medical records reviewed Symptoms are significantly improved here in the ER Patient informed of results and questions answered Chest Pain MDM - MDM 20-year-old male DF for evaluation of chest pain concern for SVT. No findings here concerning. Patient can be discharged Disposition Clinical Impression: Atypical chest pain, Chest pain Disposition: HOME SELF-CARE Condition: Good Instructions (If sedation given, give patient instructions): Chest Pain (ED) Is patient prescribed a controlled substance at d/c from ED?: No Referrals: Shellie Casillas MD [Primary Care Provider] - 1-2 days
[2021-02-07 22:05] LABS: Basophils % (A) 1 %; Eosinophils # (A) 0.1 k/uL (0-0.7); Eosinophils % (A) 2 %; HGB 17.6 gm/dL (13.0-17.5); Lymphocytes # (A) 1.4 k/uL (1.0-4.8); Lymphocytes % (A) 19 %; MCH 31.5 pg (25.0-35.0); MCHC 35.9 g/dL (31.0-37.0); MCV 87.6 fL (80.0-100.0); Mean Platelet Volume 7.4; Monocytes # (A) 0.4 k/uL (0-1.0); Monocytes % (A) 5 %; Neutrophils # (A) 5.4 k/uL (1.3-7.7); Neutrophils % (A) 74 %; Platelet Count 199 k/uL (150-450); RBC 5.59 m/uL (4.30-5.90); RDW 12.7 % (11.5-15.5); WBC 7.4 k/uL (4.0-11.0)
[2021-02-07 22:16] LABS: ALT 20 U/L (4-49); AST 31 U/L (17-59); African American GFR (CKD) >90 (>60 ml/min/1.73 sqM); Albumin 4.7 g/dL (3.5-5.0); Alkaline Phosphatase 45 U/L (38-126); Anion Gap 7 mmol/L; Blood Urea Nitrogen 16 mg/dL (9-20); Calcium 9.8 mg/dL (8.4-10.2); Carbon Dioxide 28 mmol/L (22-30); Chloride 103 mmol/L (98-107); Creatine Kinase 136 U/L (55-170); Glucose 94 mg/dL (74-99); Lipase 99 U/L (23-300); Non-African American GFR(CKD) >90 (>60 ml/min/1.73 sqM); Potassium 4.3 mmol/L (3.5-5.1); Sodium 138 mmol/L (137-145); Total Bilirubin 2.1 mg/dL (0.2-1.3); Total Protein 7.2 g/dL (6.3-8.2)
--- NOTE | 2021-02-07 22:31 | XR ---
EXAMINATION TYPE: XR chest 2V DATE OF EXAM: 02/07/2021 COMPARISON: 08/03/2019 HISTORY: Cough TECHNIQUE: 2 views FINDINGS: Heart and mediastinum are normal. Lungs are clear. Diaphragm is normal. Bony thorax appears normal. IMPRESSION: Normal chest. No change.
[2021-02-07 23:09] LABS: INR 1.1 (<1.2); Partial Thromboplastin Time 23.9 sec (22.0-30.0); Prothrombin Time 11.8 sec (9.0-12.0)
[2021-02-07 23:38] VITALS: BP 125/81; PULSE 81; RESP 18; TEMP 98
== END 2021-02-07 23:38 | disposition home or self-care (01) ==
LOC: EC 21:06
DX: R07.89 Other chest pain (principal); R00.2 Palpitations; F17.200 Nicotine dependence, unspecified, uncomplicated; E11.9 Type 2 diabetes mellitus without complications; Z86.79 Personal history of other diseases of the circulatory system
CPT/HCPCS: 36415; 71046; 80053; 82550; 83690; 83735; 83880; 84484; 85025; 85610; 85730; 93005; 96360; 96361; 99285

== ENCOUNTER 2021-02-18 23:53 | Emergency (ER) | payer OTHER ==
[2021-02-19 00:02] VITALS: RESP 18; TEMP 98.8
--- NOTE | 2021-02-19 00:39 | ED ---
Chest Pain HPI - General Chief Complaint: Chest Pain Stated Complaint: Chest pain Time Seen by Provider: 02/18/21 23:59 Source: patient, RN notes reviewed, old records reviewed Mode of arrival: ambulatory Limitations: no limitations - History of Present Illness Initial Comments: 20-year-old male the ER with history of heart disease history of SVT coming in for evaluation regarding anxiety versus panic versus chest pain. Patient states that he symptoms for quite some time today maybe a little worse always playing X box. Patient presents today in that condition. He states he does feel improved now no medications or qualify medications to change symptoms. Patient is still with some mild chest pain or discomfort on his left side no shortness of breath no sweating MD Complaint: chest pain -: hour(s) Onset: during rest Pain Location: left chest Pain Radiation: LUE Severity: mild Severity scale (1-10): 2 Quality: tightness, dull Improves With: nothing Worsens With: nothing Context: other (History of similar) Anginal Symptoms: nausea Other Symptoms: palpitations Treatments Prior to Arrival: none - Related Data Home Medications Medication Instructions Recorded Confirmed No Known Home Medications 02/07/21 02/07/21 Allergies Allergy/AdvReac Type Severity Reaction Status Date / Time No Known Allergies Allergy Verified 02/19/21 00:00 Review of Systems ROS Statement: Those systems with pertinent positive or pertinent negative responses have been documented in the HPI. ROS Other: All systems not noted in ROS Statement are negative. EKG Findings - EKG Comments: EKG Findings:: EKG shows sinus rhythm of 95, IL 146 QRS 80 QTC 442 Past Medical History Past Medical History: Diabetes Mellitus, Supraventricular Tachycardia (SVT) Additional Past Medical History / Comment(s): See Dr Sharma H&P, hx elevated liver enzymes, states past hx of diabetes, states A1C below 6 History of Any Multi-Drug Resistant Organisms: None Reported Past Surgical History: Ablation Additional Past Surgical History / Comment(s): OCD, HEART ABLATION Past Anesthesia/Blood Transfusion Reactions: No Reported Reaction Past Psychological History: ADD/ADHD, Anxiety Smoking Status: Former smoker Past Alcohol Use History: Occasional Past Drug Use History: None Reported General Exam Limitations: no limitations General appearance: alert, in no apparent distress Head exam: Present: atraumatic, normocephalic, normal inspection Eye exam: Present: normal appearance, PERRL, EOMI. Absent: scleral icterus, conjunctival injection, periorbital swelling ENT exam: Present: normal exam, mucous membranes moist Neck exam: Present: normal inspection. Absent: tenderness, meningismus, lymphadenopathy Respiratory exam: Present: normal lung sounds bilaterally. Absent: respiratory distress, wheezes, rales, rhonchi, stridor Cardiovascular Exam: Present: regular rate, normal rhythm, normal heart sounds. Absent: systolic murmur, diastolic murmur, rubs, gallop, clicks GI/Abdominal exam: Present: soft, normal bowel sounds. Absent: distended, tenderness, guarding, rebound, rigid Extremities exam: Present: normal inspection, full ROM, normal capillary refill. Absent: tenderness, pedal edema, joint swelling, calf tenderness Back exam: Present: normal inspection Neurological exam: Present: alert, oriented X3, CN II-XII intact Psychiatric exam: Present: normal affect, normal mood Skin exam: Present: warm, dry, intact, normal color. Absent: rash Course Vital Signs 02/19/21 00:00 Temperature 98.8 F Pulse Rate 95 Respiratory 18 Rate Blood Pressure 162/107 O2 Sat by Pulse 98 Oximetry - Reevaluation(s) Reevaluation #1: 02/19/21 00:47 Medical record is reviewed Reevaluation #2: 02/19/21 00:47 Symptoms have been improved Reevaluation #3: 02/19/21 00:47 Patient okay for discharge home Chest Pain MDM - MDM 20-year-old male DF for evaluation of chest pain versus anxiety. Patient has normal EKG here in the ER is preferring anxiolysis and discharged home Disposition Clinical Impression: Chest pain, Atypical chest pain, Panic attack Disposition: HOME SELF-CARE Condition: Good Instructions (If sedation given, give patient instructions): Chest Pain (ED) Is patient prescribed a controlled substance at d/c from ED?: No Referrals: Bijan Bull MD [Primary Care Provider] - 1-2 days
[2021-02-19] MEDS ORDERED: LORazepam 1 MG TAB PO STA (00:45)
[2021-02-19 01:12] VITALS: BP 144/85; PULSE 75
== END 2021-02-19 01:38 | disposition home or self-care (01) ==
LOC: EC 23:53
DX: F41.0 Panic disorder [episodic paroxysmal anxiety] (principal); R07.89 Other chest pain; E11.9 Type 2 diabetes mellitus without complications; F90.9 Attention-deficit hyperactivity disorder, unspecified type; Z87.891 Personal history of nicotine dependence
CPT/HCPCS: 93005; 99284

== ENCOUNTER 2021-03-05 17:02 | Emergency (ER) | payer BC, OTHER ==
[2021-03-05 17:09] VITALS: TEMP 97.8
--- NOTE | 2021-03-05 17:49 | ED ---
General Adult HPI - General Chief complaint: Chest Pain Stated complaint: Chest Pain Time Seen by Provider: 03/05/21 17:11 Source: patient Mode of arrival: ambulatory Limitations: no limitations - History of Present Illness Initial comments: Dictation was produced using [employer] dictation software. please excuse any grammatical, word or spelling errors. Chief Complaint: 21-year-old female no significant past medical history presents with chest pain History of Present Illness: 21-year-old male who presents today with chest pain. States that he has point tenderness to his anterior chest. States that it hurts whenever he touches it. Denies any exacerbations with exertion. States he's been playing basketball well with no issues. Denies any shortness of breath. No strong family history of heart attacks or coronary artery disease. She recently turned 21. He has consumed large amounts of alcohol for his birthday 2 days ago. Denies any understanding paresthesias to the extremities.. The ROS documented in this emergency department record has been reviewed and confirmed by me. Those systems with pertinent positive or negative responses have been documented in the HPI. All other systems are other negative and/or noncontributory. PHYSICAL EXAM: General Impression: Alert and oriented x3, not in acute distress HEENT: Normocephalic atraumatic, extra-ocular movements intact, pupils equal and reactive to light bilaterally, mucous membranes moist. Cardiovascular: Heart regular rate and rhythm Chest: Able to complete full sentences, no retractions, no tachypnea Abdomen: abdomen soft, non-tender, non-distended, no organomegaly Musculoskeletal: Pulses present and equal in all extremities, no peripheral e sina Motor: no focal deficits noted Neurological: CN II-XII grossly intact, no focal motor or sensory deficits noted Skin: Intact with no visualized rashes Psych: Normal affect and mood ED course: 21 y Old male presents emergency department for atypical chest pain. Vital signs upon arrival shows heart rate of 121, worse vital signs within acceptable limits. EKG does not show any signs of ischemia or infarction or any abnormalities. Labs are unremarkable. Troponin negative. Reassurance provided. Patient vital signs are improved. Patient will be discharged. Told to follow up with primary care doctor. EKG interpretation: Ventricular rate 89, normal sinus rhythm, IA interval 146, QRS 78, QTc 4:30. No IA prolongation, no QTC prolongation, no ST or T-wave changes noted. Overall, this EKG is unremarkable - Related Data Home Medications Medication Instructions Recorded Confirmed No Known Home Medications 02/07/21 02/07/21 Allergies Allergy/AdvReac Type Severity Reaction Status Date / Time No Known Allergies Allergy Verified 03/05/21 17:08 Review of Systems ROS Statement: Those systems with pertinent positive or pertinent negative responses have been documented in the HPI. ROS Other: All systems not noted in ROS Statement are negative. Past Medical History Past Medical History: Diabetes Mellitus, Supraventricular Tachycardia (SVT) Additional Past Medical History / Comment(s): See Dr Sharma H&P, hx elevated liver enzymes, states past hx of diabetes, states A1C below 6 History of Any Multi-Drug Resistant Organisms: None Reported Past Surgical History: Ablation Additional Past Surgical History / Comment(s): OCD, HEART ABLATION Past Anesthesia/Blood Transfusion Reactions: No Reported Reaction Past Psychological History: ADD/ADHD, Anxiety Smoking Status: Former smoker Past Alcohol Use History: Occasional Past Drug Use History: None Reported General Exam Limitations: no limitations Course Vital Signs 03/05/21 03/05/21 17:05 18:16 Temperature 97.8 F Pulse Rate 121 H 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 ] Respiratory 20 Rate Blood Pressure 161/83 O2 Sat by Pulse 99 Oximetry Medical Decision Making - Lab Data Result diagrams: 03/05/21 18:03 03/05/21 18:03 Lab Results 03/05/21 03/05/21 03/05/21 Range/Units 18:03 18:03 18:03 WBC 5.3 (3.8-10.6) k/uL RBC 5.35 (4.30-5.90) m/uL Hgb 16.3 (13.0-17.5) gm/dL Hct 46.5 (39.0-53.0) % MCV 87.1 (80.0-100.0) fL MCH 30.5 (25.0-35.0) pg MCHC 35.0 (31.0-37.0) g/dL RDW 12.7 (11.5-15.5) % Plt Count 208 (150-450) k/uL MPV 8.0 Neutrophils % 62 % Lymphocytes % 28 % Monocytes % 5 % Eosinophils % 3 % Basophils % 1 % Neutrophils # 3.3 (1.3-7.7) k/uL Lymphocytes # 1.5 (1.0-4.8) k/uL Monocytes # 0.3 (0-1.0) k/uL Eosinophils # 0.1 (0-0.7) k/uL Basophils # 0.0 (0-0.2) k/uL Sodium 139 (137-145) mmol/L Potassium 4.0 (3.5-5.1) mmol/L Chloride 106 (98-107) mmol/L Carbon Dioxide 25 (22-30) mmol/L Anion Gap 8 mmol/L BUN 14 (9-20) mg/dL Creatinine 0.71 (0.66-1.25) mg/dL Est GFR (CKD-EPI)AfAm >90 (>60 ml/min/1.73 sqM) Est GFR (CKD-EPI)NonAf >90 (>60 ml/min/1.73 sqM) Glucose 99 (74-99) mg/dL Calcium 9.6 (8.4-10.2) mg/dL Magnesium 2.2 (1.6-2.3) mg/dL Troponin I <0.012 (0.000-0.034) ng/mL Disposition Clinical Impression: Chest pain Disposition: HOME SELF-CARE Condition: Good Instructions (If sedation given, give patient instructions): Chest Pain (ED) Is patient prescribed a controlled substance at d/c from ED?: No Referrals: Bijan Bull MD [Primary Care Provider] - 1-2 days
[2021-03-05 18:09] LABS: Basophils % (A) 1 %; Eosinophils # (A) 0.1 k/uL (0-0.7); Eosinophils % (A) 3 %; HCT 46.5 % (39.0-53.0); HGB 16.3 gm/dL (13.0-17.5); Lymphocytes # (A) 1.5 k/uL (1.0-4.8); Lymphocytes % (A) 28 %; MCH 30.5 pg (25.0-35.0); MCV 87.1 fL (80.0-100.0); Monocytes # (A) 0.3 k/uL (0-1.0); Monocytes % (A) 5 %; Neutrophils # (A) 3.3 k/uL (1.3-7.7); Neutrophils % (A) 62 %; Platelet Count 208 k/uL (150-450); RBC 5.35 m/uL (4.30-5.90); RDW 12.7 % (11.5-15.5); WBC 5.3 k/uL (3.8-10.6)
[2021-03-05 18:19] LABS: African American GFR (CKD) >90 (>60 ml/min/1.73 sqM); Anion Gap 8 mmol/L; Blood Urea Nitrogen 14 mg/dL (9-20); Calcium 9.6 mg/dL (8.4-10.2); Carbon Dioxide 25 mmol/L (22-30); Chloride 106 mmol/L (98-107); Glucose 99 mg/dL (74-99); Magnesium 2.2 mg/dL (1.6-2.3); Non-African American GFR(CKD) >90 (>60 ml/min/1.73 sqM); Sodium 139 mmol/L (137-145)
[2021-03-05 19:09] VITALS: BP 129/78; PULSE 84; RESP 16
== END 2021-03-05 19:04 | disposition home or self-care (01) ==
LOC: EC 17:02
DX: R07.89 Other chest pain (principal); E11.9 Type 2 diabetes mellitus without complications; F41.9 Anxiety disorder, unspecified; F42.9 Obsessive-compulsive disorder, unspecified; F90.9 Attention-deficit hyperactivity disorder, unspecified type; Z87.891 Personal history of nicotine dependence
CPT/HCPCS: 36415; 80048; 83735; 84484; 85025; 93005; 99285

== ENCOUNTER 2021-03-08 12:44 | Emergency (ER) | payer BC, OTHER ==
[2021-03-08] MEDS ORDERED: ASPIRIN 81 MG PO STA (13:13)
[2021-03-08] MEDS ORDERED: SODIUM CHLORIDE 0.9% 1,000 ML IV STA (13:13)
[2021-03-08 13:51] LABS: Basophils # (A) 0.1 k/uL (0-0.2); Basophils % (A) 1 %; Eosinophils # (A) 0.1 k/uL (0-0.7); Eosinophils % (A) 2 %; HCT 48.5 % (39.0-53.0); HGB 17.5 gm/dL (13.0-17.5); Lymphocytes # (A) 1.5 k/uL (1.0-4.8); Lymphocytes % (A) 32 %; MCH 31.2 pg (25.0-35.0); MCV 86.8 fL (80.0-100.0); Mean Platelet Volume 7.5; Monocytes # (A) 0.2 k/uL (0-1.0); Monocytes % (A) 5 %; Neutrophils # (A) 2.7 k/uL (1.3-7.7); Neutrophils % (A) 58 %; Platelet Count 217 k/uL (150-450); RBC 5.59 m/uL (4.30-5.90); RDW 12.7 % (11.5-15.5); WBC 4.7 k/uL (3.8-10.6)
--- NOTE | 2021-03-08 13:55 | ED ---
Chest Pain HPI - General Chief Complaint: Chest Pain Stated Complaint: Chest Pain Source: patient, family, RN notes reviewed, old records reviewed Mode of arrival: wheelchair Limitations: no limitations - History of Present Illness Initial Comments: 21-year-old white male patient, well-appearing alert and oriented 4, presents to the emergency room with complaints of left-sided chest pain that occurred approximately one hour prior to arrival while doing jumping jacks. Patient states he felt like he was punched in the chest it did resolve with rest but has since come back while resting. Patient states that he seen Dr. Broderick yesterday and has a scheduled stress test and echo in 6 weeks. Patient states he also has anxiety. States that in the past he's had a history of SVT with an ablation in January 2020. Patient states that he was convinced that he was having a heart attack today and came to the emergency room. Patient states he normally takes Vistaril for his anxiety but he did not take it as he doesn't thinks it works. He takes Prilosec as needed. Patient denies any nausea vomiting or diarrhea. No fevers MD Complaint: chest pain -: hour(s) (1) Onset: during exertion Pain Radiation: none (During jumping jacks) Severity scale (1-10): 6 Quality: heaviness (felt like punched in chest) Consistency: intermittent Improves With: nothing Worsens With: exertion Context: other Treatments Prior to Arrival: none - Related Data Home Medications Medication Instructions Recorded Confirmed No Known Home Medications 02/07/21 02/07/21 Allergies Allergy/AdvReac Type Severity Reaction Status Date / Time No Known Allergies Allergy Verified 03/08/21 12:49 Review of Systems ROS Statement: Those systems with pertinent positive or pertinent negative responses have been documented in the HPI. ROS Other: All systems not noted in ROS Statement are negative. EKG Findings - EKG Results: EKG: sinus rhythm (Ventricular rate of 120, SC interval 0.142, QRS of 0.74, QTC 0.38), no acute changes (03/05/21) Past Medical History Past Medical History: Diabetes Mellitus, Supraventricular Tachycardia (SVT) Additional Past Medical History / Comment(s): See Dr Sharma H&P, hx elevated liver enzymes, states past hx of diabetes, states A1C below 6 History of Any Multi-Drug Resistant Organisms: None Reported Past Surgical History: Ablation Additional Past Surgical History / Comment(s): OCD, HEART ABLATION Past Anesthesia/Blood Transfusion Reactions: No Reported Reaction Past Psychological History: ADD/ADHD, Anxiety Smoking Status: Former smoker Past Alcohol Use History: Occasional Past Drug Use History: None Reported General Exam Limitations: no limitations General appearance: alert, in no apparent distress, anxious Head exam: Present: atraumatic, normocephalic, normal inspection Eye exam: Present: normal appearance, PERRL, EOMI. Absent: scleral icterus, conjunctival injection, periorbital swelling Pupils: Present: normal accommodation ENT exam: Present: normal exam, normal oropharynx, mucous membranes moist Neck exam: Present: normal inspection, full ROM. Absent: tenderness, meningismus, lymphadenopathy, thyromegaly Respiratory exam: Present: normal lung sounds bilaterally. Absent: respiratory distress, wheezes, rales, rhonchi, stridor, chest wall tenderness, accessory muscle use, decreased breath sounds, prolonged expiratory Cardiovascular Exam: Present: normal rhythm, tachycardia, normal heart sounds. Absent: systolic murmur, diastolic murmur, rubs, gallop, clicks GI/Abdominal exam: Present: soft, normal bowel sounds. Absent: distended, tenderness, guarding, rebound, rigid Extremities exam: Present: normal inspection, full ROM, normal capillary refill. Absent: tenderness, pedal edema, joint swelling, calf tenderness Back exam: Present: normal inspection, full ROM. Absent: tenderness, CVA tenderness (R), CVA tenderness (L), muscle spasm, paraspinal tenderness, vertebral tenderness Neurological exam: Present: alert, oriented X3, CN II-XII intact Psychiatric exam: Present: normal affect, normal mood, anxious Skin exam: Present: warm, dry, intact, normal color. Absent: rash, cyanosis, diaphoretic, erythema, petechiae, pallor, mottled Course Vital Signs 03/08/21 12:45 Temperature 98.1 F Pulse Rate 124 H Respiratory 22 Rate Blood Pressure 160/90 O2 Sat by Pulse 98 Oximetry Chest Pain MDM - MDM Hemoglobin and hematocrit is 17 and 48 respectively, PVC count is 4.7, d-dimer is negative at 0.17, potassium is 4.1 troponin is negative at 0.012 magnesium is 2.0. Chest x-ray as shows no acute cardiopulmonary process. EKG shows no ST elevation or acute changes. 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 He states that he is scheduled to have an echo and stress test in 6 weeks. Patient states that he has not had pain here. He believes is musculoskeletal no he does have an appointment with Dr. Bull Friday. He is agreeable to being discharged home and keeping his appointments. Disposition Clinical Impression: Chest pain, Anxiety about health Disposition: HOME SELF-CARE Condition: Good Instructions (If sedation given, give patient instructions): Chest Pain (ED), Anxiety (ED) Additional Instructions: Take Motrin as needed, increase your fluid intake. Keep your appointment with Dr. Bull Friday. Keep your appointment with cardiology for echo and stress test 6 weeks. Return to the emergency room with worsening symptoms. Is patient prescribed a controlled substance at d/c from ED?: No Referrals: Bijan Bull MD [Primary Care Provider] - 1-2 days Neha Donovan MD [STAFF PHYSICIAN] - 1-2 days Time of Disposition: 15:27
[2021-03-08 14:06] LABS: ALT 32 U/L (4-49); AST 40 U/L (17-59); African American GFR (CKD) >90 (>60 ml/min/1.73 sqM); Albumin 4.6 g/dL (3.5-5.0); Alkaline Phosphatase 41 U/L (38-126); Anion Gap 8 mmol/L; Blood Urea Nitrogen 13 mg/dL (9-20); Calcium 9.7 mg/dL (8.4-10.2); Carbon Dioxide 25 mmol/L (22-30); Chloride 104 mmol/L (98-107); Glucose 99 mg/dL (74-99); Non-African American GFR(CKD) >90 (>60 ml/min/1.73 sqM); Potassium 4.1 mmol/L (3.5-5.1); Sodium 137 mmol/L (137-145); Total Bilirubin 2.2 mg/dL (0.2-1.3); Total Protein 7.2 g/dL (6.3-8.2)
[2021-03-08 14:09] LABS: D-Dimer <0.17 mg/L FEU (<0.60); INR 1.1 (<1.2); Prothrombin Time 11.9 sec (9.0-12.0)
--- NOTE | 2021-03-08 14:26 | XR ---
EXAMINATION TYPE: XR chest 2V DATE OF EXAM: 03/08/2021 CLINICAL HISTORY: Chest Pain. TECHNIQUE: Frontal and lateral view of the chest. COMPARISON: 02/07/2021 FINDINGS: The cardiomediastinal silhouette is within normal limits for size. Pulmonary vasculature i s normal. There is no focal air space opacity. No pleural effusion. No pneumothorax seen. No acute d isplaced osseous fracture. IMPRESSION: No acute cardiopulmonary process.
[2021-03-08] MEDS ORDERED: MORPHINE SULFATE 2 MG/ML SYRINGE IVP STA (14:34)
[2021-03-08 14:39] LABS: Appearance,Urine Clear (Clear); Bilirubin,Urine Negative (Negative); Blood,Urine Negative (Negative); Color,Urine Yellow; Glucose,Urine (UA) Negative (Negative); Ketones,Urine Negative (Negative); Leukocyte Esterase,Urine Negative (Negative); Nitrite,Urine Negative (Negative); Protein,Urine Trace (Negative); Specific Gravity,Urine 1.024 (1.001-1.035); Urobilinogen,Urine <2.0 mg/dL (<2.0)
[2021-03-08 16:20] VITALS: BP 145/94; PULSE 80; RESP 17; TEMP 98.2
== END 2021-03-08 16:19 | disposition home or self-care (01) ==
LOC: EC 12:44
DX: F41.9 Anxiety disorder, unspecified (principal); R07.89 Other chest pain; E11.9 Type 2 diabetes mellitus without complications; F90.9 Attention-deficit hyperactivity disorder, unspecified type; Z87.891 Personal history of nicotine dependence
CPT/HCPCS: 36415; 93005; 85379; 80053; 83735; 84484; 85025; 85610; 85730; 81003; 71046; 99285; 96374; 96361; J2270

== ENCOUNTER → 2022-05-24 | Outpatient (CLI) | payer BC, OTHER | END | disposition home or self-care (01) | LOC: LABWHC1 12:24 | PROVIDERS: ATTEND Urology | DX: N50.9 Disorder of male genital organs, unspecified (principal) | CPT/HCPCS: 36415; 82105; 83615; 84702 ==

== ENCOUNTER → 2022-05-24 | Outpatient (CLI) | payer BC, OTHER ==
[2022-05-24 18:07] LABS: Basophils # (A) 0.05 X 10*3/uL (0.00-0.10); Basophils % (A) 0.9 %; Eosinophils # (A) 0.17 X 10*3/uL (0.04-0.35); Eosinophils % (A) 3.2 %; HCT 48.9 % (39.6-50.0); HGB 17.3 g/dL (13.0-17.0); Immature Grans, Automated 0.2 %; Lymphocytes # (A) 1.52 X 10*3/uL (0.90-5.00); Lymphocytes % (A) 28.4 %; MCHC 35.4 g/dL (32.0-37.0); MCV 84.7 fL (80.0-97.0); Mean Platelet Volume 10.8 fL (9.5-12.2); Monocytes # (A) 0.28 X 10*3/uL (0.20-1.00); Monocytes % (A) 5.2 %; NRBC Per 100 WBC 0 /100 WBCS (0.0-0.0); Neutrophils # (A) 3.32 X 10*3/uL (1.80-7.70); Neutrophils % (A) 62.1 %; Platelet Count 225 X 10*3/uL (140-440); RBC 5.77 X 10*6/uL (4.40-5.60); WBC 5.35 X 10*3/uL (4.50-10.00)
[2022-05-24 18:27] LABS: Anion Gap 13.7 mmol/L (10.00-18.00); BUN/Creat Ratio 14.56 Ratio (12.00-20.00); Blood Urea Nitrogen 13.1 mg/dL (9.0-27.0); Calcium 9.7 mg/dL (8.7-10.3); Carbon Dioxide 20.3 mmol/L (20.0-27.5); Non-African American GFR(CKD) 120.8 (60.0-200.0)
== END | disposition home or self-care (01) ==
LOC: LABPAT 12:16
PROVIDERS: ATTEND Urology
DX: Z01.818 Encounter for other preprocedural examination (principal); C62.00 Malignant neoplasm of unspecified undescended testis
CPT/HCPCS: 80048; 85025

== ENCOUNTER → 2022-05-31 | Day surgery (SDC) | payer BC, OTHER ==
[~2022-05-31] MED LIST changes: +BUPIVACAINE (PF) 0.5% 30 ML VIAL SQ ONE; +DEXAMETHASONE SOD PHOSPHATE 4 MG/ML 1 ML VIAL IV ONE; +GLYCOPYRROLATE 0.2 MG/ML 2 ML VIAL ONE; +HYDROcodone/APAP 5-325MG 1 EACH TAB ONE; +HYDROcodone/APAP 5-325MG 1 EACH TAB PO ONE; +HYDROmorphone (PF) 1 MG/ML ONE; +HYDROmorphone 0.5 MG/0.5 ML SYRINGE IVP PRN; +LACTATED RINGERS 1,000 ML IV ONE; +LIDOCAINE 1% (10MG/ML) FOR IV START INTRADERMA PRN; +LIDOCAINE 2% INJ 20 MG/ML (2 ML VIAL) ONE; +MIDAZOLAM 2 MG/2 ML VIAL IVP ONE; +ONDANSETRON 4 MG/2 ML VIAL IVP ONE; +PROPOFOL 10 MG/ML 20 ML VIAL IV ONE; +SCOPOLAMINE 1 MG/72 HR PATCH TRANSDERM ONE; -SODIUM CHLORIDE 0.9% 1,000 ML IV SCH; +SUCCINYLCHOLINE CHLORIDE 200 MG/10 ML VIAL IV ONE; +ceFAZolin 3 GM in SODIUM CHLORIDE 0.9% 100 ML IVPB PRN; +fentaNYL (PF) 50 MCG/ML 2 ML AMP ONE
--- NOTE | 2022-05-31 10:51 | P.HPIHPCON ---
History of Present Illness H&P Date: 05/31/22 Chief Complaint: Right testicular mass This is a 22-year-old male with history of a right-sided testicular mass, confirmed to be hypervascular on ultrasound, but the one exam. Discussed with him given this finding is highly concerning for a right testicular malignancy. Discussed with him the treatment approach would be a right radical orchiectomy. Discussed with him the risk benefit of the rationale of doing the surgery. Discussed with him given the concern for malignancy on biopsy is contraindicated. Discussed risk of infertility, bleeding, infection. Discussed also the option of testicular prostheses at the same setting. He understood all the risk and agreed to proceed with a right sided radical orchiectomy Consent for Procedure: I have explained the operation/procedure to the patient, including the risks, benefits, side effects, alternative therapies (including not receiving the proposed treatment or service), the likelihood of the patient achieving his/her goals, and potential recuperation problems for the procedure/sedation/analgesia, as well as any blood products, if indicated. I also explained to the patient the risks, benefits and side effects of the alternatives, as well as the risks related to not receiving the proposed procedure, care, treatment, or services. Past Medical History Past Medical History: Diabetes Mellitus, Supraventricular Tachycardia (SVT) Additional Past Medical History / Comment(s): See Dr Sharma H&P, hx elevated liver enzymes, states past hx of diabetes, states A1C below 6. lump on rt testicle intermittent mild pain. occasional hearburn. Pt states his BP can run high he has anxiety and in the Dr office they usually repeat it before he leaves and it is better.. History of Any Multi-Drug Resistant Organisms: None Reported Past Surgical History: Ablation Additional Past Surgical History / Comment(s): HEART ABLATION 2019 Past Anesthesia/Blood Transfusion Reactions: No Reported Reaction Additional Past Anesthesia/Blood Transfusion Reaction / Comment(s): family hx of nausea Smoking Status: Former smoker - Past Family History Mother Family Medical History: Coronary Artery Disease (CAD), Diabetes Mellitus, Hypertension Father Family Medical History: Hypertension Medications and Allergies Home Medications Medication Instructions Recorded Confirmed Type Ergocalciferol [Vitamin D2 (1250 50,000 unit PO DAILY 05/29/22 05/29/22 History Mcg = 85994 Iu)] Sertraline [Zoloft] 50 mg PO DAILY 05/29/22 05/29/22 History Allergies Allergy/AdvReac Type Severity Reaction Status Date / Time No Known Allergies Allergy Verified 05/29/22 14:08 Surgical - Exam - General no distress, no pain - Eyes normal ocular movement, no pale - ENT normal nares, normal mucosa - Respiratory normal expansion, normal respiratory effort - Abdomen Abdomen: soft, non tender - Psychiatric oriented to time, oriented to person, oriented to place Assessment and Plan Assessment: OR for right-sided inguinal orchiectomy
[2022-05-31 15:02] LABS: Glucose,Whole Blood 95 mg/dL (70-110)
[2022-05-31 18:17] VITALS: TEMP 98.6
[2022-05-31 18:42] VITALS: RESP 20
[2022-05-31 20:05] VITALS: BP 133/85; PULSE 112
--- NOTE | 2022-06-01 11:32 | P.OP ---
Date of Procedure: 05/31/22 Preoperative Diagnosis: Right testicular mass Postoperative Diagnosis: Same Procedure(s) Performed: Right radical inguinal orchiectomy Implants: None Anesthesia: BETTYA Surgeon: Fabian Rose Estimated Blood Loss (ml): 25 Pathology: none sent (Right testicle and cord) Condition: stable Disposition: PACU Indications for Procedure: This is a 22-year-old male with history of a right-sided testicular mass, confirmed to be hypervascular on ultrasound, but the one exam. Discussed with him given this finding is highly concerning for a right testicular malignancy. Discussed with him the treatment approach would be a right radical orchiectomy. Discussed with him the risk benefit of the rationale of doing the surgery. Discussed with him given the concern for malignancy on biopsy is contraindicated. Discussed risk of infertility, bleeding, infection. Discussed also the option of testicular prostheses at the same setting. He understood all the risk and agreed to proceed with a right sided radical orchiectomy Operative Findings: Right palpable testicular mass Description of Procedure: Patient was brought to the operating room he was positioned in the bed in supine position. General anesthesia was induced. Patient was prepped and draped in sterile fashion. An incision was made over the inguinal crease using a scalpel. Subcutaneous tissue was dissected using electrocautery. Dissection was carried down to the inguinal ring. At this time the testicular cord was identified. The ilioinguinal nerve was identified and dissected away from the cord. At this time the cord was mobilized and a Hortencia was wrapped around the cord. The testicle was inverted through the scrotum until delivered to the surgical bed. The gubernacular attachment was dissected off of the scrotum and the testicle was no longer adhered to the scrotum. The cord was divided into 2 pockets in each pocket was controlled with 0 silk ties. Hemostasis was achieved using electrocautery. The fascia was closed with 2-0 Vicryl in running fashion. Subcutaneous tissue was closed with 3-0 Vicryl, skin was closed with 4-0 Monocryl and Dermabond was applied. Patient wake up from surgery without complication and taken to the recovery in stable condition
== END ==
LOC: OR 14:28
PROVIDERS: ATTEND Urology
DX: D40.10 Neoplasm of uncertain behavior of unspecified testis (principal); N50.9 Disorder of male genital organs, unspecified; I10 Essential (primary) hypertension; J45.909 Unspecified asthma, uncomplicated; I47.1 Supraventricular tachycardia; E11.9 Type 2 diabetes mellitus without complications; F41.9 Anxiety disorder, unspecified; F32.A Depression, unspecified; F12.90 Cannabis use, unspecified, uncomplicated; Z79.899 Other long term (current) drug therapy; Z86.79 Personal history of other diseases of the circulatory system
CPT/HCPCS: 54530; J2250; J0330; J1100; J0690; J2405; J3010; J1170 ×2; J2704; J2001; 86788; 88309; 88341; 88342

== ENCOUNTER → 2022-06-24 | Outpatient (CLI) | payer BC, OTHER ==
--- NOTE | 2022-06-24 19:56 | CT ---
EXAMINATION TYPE: CT ChestAbdPelvis w con DATE OF EXAM: 06/24/2022 INDICATION: h/o right testis CA, f/u h/o right orchiectomy COMPARISON: None CT DLP: 1419 mGycm CONTRAST: Performed with Oral Contrast and with IV Contrast, patient injected with 100 mL of Isovue 300. TECHNIQUE: Axial images at 5 mm thick sections. Reconstructed images in the coronal plane. Delayed images through the kidneys. FINDINGS: CT CHEST: Portion of the thyroid visualized is normal. No suspicious lung nodules or focal infiltrates are present. No enlarged mediastinal or hilar adenopathy is evident. The ascending aorta diameter at the level of the main pulmonary artery is 3.2 cm. The main pulmonary artery diameter at the bifurcation is 2.[address] ABDOMEN: Lymphadenopathy: Small right inguinal lymph nodes are present. No enlarged iliac chain or obturator c anal lymphadenopathy is evident. No suspicious periaortic or retrocaval adenopathy. Couple of small p eriaortic lymph nodes are identified. No suspicious adenopathy at the level of the renal arteries and veins. Liver: Normal Spleen: Normal Pancreas: Normal Adrenal glands: The adrenal glands are normal. Gallbladder: Normal Kidneys: No masses are evident. No hydronephrosis is present. No cysts are present. Delayed images were obtained through the kidneys, which remain unremarkable. Aorta: Normal Inferior vena cava: Normal. CT PELVIS: Loops of bowel within the abdomen and pelvis are normal. There are loops of bowel which are incom pletely distended or lack oral contrast limiting their evaluation. Appendix: Normal as visualized. Urinary bladder: Normal. Genitourinary structures: Prostate is unremarkable. Osseous structures: No suspicious lytic or sclerotic lesions. IMPRESSIONS: 1. No suspicious changes to suggest metastatic neoplasm
== END | disposition home or self-care (01) ==
LOC: RADCTMAIN 12:50
PROVIDERS: ATTEND Urology
DX: C62.00 Malignant neoplasm of unspecified undescended testis (principal)
CPT/HCPCS: 71260; 74177; Q9967

== ENCOUNTER → 2022-09-12 | Outpatient (CLI) | payer BC, OTHER ==
--- NOTE | 2022-09-12 10:10 | XR ---
EXAMINATION TYPE: XR chest 2V DATE OF EXAM: 09/12/2022 COMPARISON: NONE TECHNIQUE: PA and lateral views submitted. HISTORY: Testicular cancer FINDINGS: The lungs are clear and there is no pneumothorax, pleural effusion, or focal pneumonia. Heart size normal and no overt failure. Osseous intact. Overinflation of the lungs correlate for asthma or COPD. IMPRESSION: 1. No acute process.
[2022-09-12 10:16] LABS: African American GFR (CKD) >90 (>60 ml/min/1.73 sqM); Blood Urea Nitrogen 20 mg/dL (9-20); Non-African American GFR(CKD) >90 (>60 ml/min/1.73 sqM)
--- NOTE | 2022-09-12 12:06 | CT ---
EXAMINATION TYPE: CT abdomen pelvis w con CT DLP: 1965 mGycm, Automated exposure control for dose reduction was used. 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 TECHNIQUE: Axial CT of the abdomen and pelvis. Sagittal and coronal reformats were created on a [employer] workstation. Contrast used:70ml mL of Isovue 300 with IV Contrast, Oral contrast used: with Oral Contrast FINDINGS: LOWER CHEST: Unremarkable ABDOMEN LIVER: Unremarkable GALLBLADDER AND BILE DUCTS: Unremarkable. PANCREAS: Unremarkable. SPLEEN: Unremarkable. ADRENAL GLANDS: Unremarkable. KIDNEYS AND URETERS: No evidence of hydronephrosis or renal calculus. The ureters are unremarkable. PELVIS BLADDER: Unremarkable REPRODUCTIVE: The right testicle is surgically absent. ABDOMEN & PELVIS STOMACH AND BOWEL: No evidence of bowel obstruction. Appendix is normal. PERITONEUM/RETROPERITONEUM: No evidence of pneumoperitoneum or free fluid. . VASCULATURE: No evidence of aortic aneurysm. MUSCULOSKELETAL: No acute osseous abnormalities LYMPH NODES: No gross evidence for lymphadenopathy. SOFT TISSUE/ABDOMINAL WALL: Unremarkable IMPRESSION: No evidence for mass or lymphadenopathy.
== END | disposition home or self-care (01) ==
LOC: RADCTMAIN 09:37
PROVIDERS: ATTEND Internal Medicine
DX: C62.91 Malignant neoplasm of right testis, unspecified whether descended or undescended (principal); Z71.3 Dietary counseling and surveillance
CPT/HCPCS: 82565; 84520; 71046; 74177; 36415; Q9967 ×2

== ENCOUNTER → 2023-09-08 | Outpatient (CLI) | payer BC, OTHER ==
--- NOTE | 2023-09-08 10:53 | CT ---
EXAMINATION TYPE: CT abdomen pelvis w con CT DLP: 2063 mGycm, Automated exposure control for dose reduction was used. DATE OF EXAM: 09/08/2023 10:48 AM COMPARISON: 09/12/2022. CLINICAL INDICATION:Male, 23 years old with history of C82.91 testicular ca; Hx testicular ca, annual follow up. Pt did note he feels something abnormal in Lt testicle. Additional images to get through the AIRAM TECHNIQUE: Axial CT abdomen pelvis w con;Sagittal and coronal reformats were created on a separate w orkstation. Contrast used:100 mL of Isovue 300 with IV Contrast, (none if empty) Oral contrast used: with Oral Contrast (none if empty) FINDINGS: LOWER CHEST: Unremarkable ABDOMEN LIVER: Unremarkable GALLBLADDER AND BILE DUCTS: Unremarkable. PANCREAS: Unremarkable. SPLEEN: Unremarkable. ADRENAL GLANDS: Unremarkable. KIDNEYS AND URETERS: No evidence of hydronephrosis or renal calculus. The ureters are unremarkable. PELVIS BLADDER: Unremarkable REPRODUCTIVE: The right testis appears surgically absent. No soft tissue masses in the scrotum. ABDOMEN & PELVIS STOMACH AND BOWEL: No evidence of bowel obstruction. PERITONEUM/RETROPERITONEUM: No evidence of pneumoperitoneum or free fluid. VASCULATURE: No evidence of aortic aneurysm. MUSCULOSKELETAL: No acute osseous abnormalities, right femoral head sclerotic focus compatible with b [place]. LYMPH NODES: No gross evidence for lymphadenopathy. SOFT TISSUE/ABDOMINAL WALL: Unremarkable IMPRESSION: Left testis with possible left hydrocele. Correlate with ultrasound for evaluation for patient's abno rmality.. No evidence for lymphadenopathy or evidence to suggest metastatic disease.
== END | disposition home or self-care (01) ==
LOC: RADCTMAIN 08:42
PROVIDERS: ATTEND Internal Medicine
DX: C62.91 Malignant neoplasm of right testis, unspecified whether descended or undescended (principal)
CPT/HCPCS: 74177; Q9967

== ENCOUNTER → 2024-02-03 | Outpatient (CLI) | payer BC, OTHER ==
--- NOTE | 2024-02-03 16:46 | US ---
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 Patient feels palpable areas within right groin. No palpable areas within left groin. TECHNIQUE: Scanned bilateral groin with multiple grayscale and color Doppler ultrasound. FINDINGS/IMPRESSION: 2 Hypoechoic areas with hyperechoic centers seen within the right groin: #1 = 1 .5 x 0.2 x 0.5 cm. Cortex = 2 mm. #2 = 1.1 x 1.1 x 0.5 cm. Cortex = 2 mm. 1 Hypoechoic area with hyperechoic center seen within the left groin: 1.1 x 1.1 x 0.5 cm. Cortex = 2 mm. These are consistent with benign-appearing lymph nodes. These demonstrate reniform shape with central fatty hilum. No cortical thickening identified.
--- NOTE | 2024-02-03 16:49 | US ---
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 Patient feels palpable areas within bilateral neck. TECHNIQUE: Scanned bilateral and midline neck. FINDINGS: Right Neck: Hypoechoic areas with hyperechoic centers seen: #1= 1.7 x 1.4 x 0.7 cm. Cortex = 3.9 mm. #2 = 2.2 x 1.7 x 0.9 cm. Cortex = 5 mm. Left Neck: Hypoechoic area with hyperechoic center seen: #1 = 1.4 x 1.3 x 0.4 cm. Cortex = 2.6 mm. 2 hypoechoic, heterogeneous areas seen within the left submandibular area with no clear hilum visuali zed: #1 = 2.7 x 1.8 x 1.3 cm. #2 = 2.1 x 1.9 x 1.0 cm. Additional hypoechoic area was seen within the left lateral neck: 1.4 x 1.1 x 0.5 cm. No clear hilum was visualized. Multiple enlarged lymph nodes identified. Most demonstrate a reniform shape with central fatty hilum however there are some that are more ovoid in shape with loss of central fatty hilum. IMPRESSION: Multiple enlarged lymph nodes within the bilateral neck. These may be reactive however cannot exclude metastasis. Consider tissue sampling of the largest lymph node versus PET/CT.
== END | disposition home or self-care (01) ==
LOC: RADUSWWP 15:21
PROVIDERS: ATTEND Internal Medicine
DX: C62.91 Malignant neoplasm of right testis, unspecified whether descended or undescended (principal); R59.0 Localized enlarged lymph nodes; Z71.3 Dietary counseling and surveillance
CPT/HCPCS: 76536; 76882

== ENCOUNTER → 2024-02-20 | Outpatient (CLI) | payer BC, OTHER ==
--- NOTE | 2024-02-22 17:08 | PE ---
EXAMINATION TYPE: PET CT fusion skull to thigh DATE OF EXAM: 02/20/2024 CLINICAL INDICATION:Male, 23 years old with history of C62.11 TESTICULAR CANCER; TECHNIQUE: Following the intravenous administration of 12.25 mCi of F-18 FDG, whole body images are performed from the skull base to the midthigh. Images are reviewed on the computer in the coronal, axial, and sagittal planes. Reconstructed rotating images are created on independent workstation and reviewed on the computer. A non-contrast CT is performed in conjunction with the PET scan. Glucose level 82 mg/dL CT DLP: 1122 mGycm, Automated exposure control for dose reduction was used. COMPARISON: CT 09/08/2023, PET/CT None, MRI: None FINDINGS: Mediastinal SUV mean is 2.2. Hepatic parenchyma SUV mean is 3.0. SKULL BASE AND NECK: No suspicious radiotracer activity. CHEST, MEDIASTINUM, AND HILAR REGION: No suspicious radiotracer activity. ABDOMEN AND PELVIS: There is a single lymph node just medial to the IVC in the upper abdomen with max SUV 7.1 series 3 im age 142r measuring 10 mm in short axis. MUSCULOSKELETAL STRUCTURES: No suspicious radiotracer activity. OTHER CT: Scattered colonic diverticula. IMPRESSION: Single indeterminate lymph node in the upper abdomen. Findings could represent a normal reactive lymp h node and less likely malignancy. Surveillance imaging recommended consider short-term follow-up in [address] abdomen pelvis with IV and oral contrast.
== END | disposition home or self-care (01) ==
LOC: RADPETMAIN 13:09
PROVIDERS: ATTEND Internal Medicine
DX: C62.11 Malignant neoplasm of descended right testis (principal)
CPT/HCPCS: 78815; A9552

== ENCOUNTER → 2024-05-31 | Outpatient (CLI) | payer BC, OTHER ==
[2024-05-31 16:10] LABS: African American GFR (CKD) >90 (>60 ml/min/1.73 sqM); Blood Urea Nitrogen 13 mg/dL (9-20); Non-African American GFR(CKD) >90 (>60 ml/min/1.73 sqM)
--- NOTE | 2024-05-31 17:35 | CT ---
EXAMINATION TYPE: CT abdomen pelvis w con CT DLP: 23 mGycm, Automated exposure control for dose reduction was used. DATE OF EXAM: 05/31/2024 4:45 PM COMPARISON: 02/12/2024 CLINICAL INDICATION: Male, 24 years old with history of C62.91 Testicular cancer; TECHNIQUE: Axial CT abdomen pelvis w con;Sagittal and coronal reformats were created on a separate w orkstation. Contrast used: 100 cc of Isovue 300 Oral contrast used: (none if empty) FINDINGS: LOWER CHEST: Unremarkable ABDOMEN LIVER: Unremarkable GALLBLADDER AND BILE DUCTS: Unremarkable. PANCREAS: Unremarkable. SPLEEN: Unremarkable. ADRENAL GLANDS: Unremarkable. KIDNEYS AND URETERS: No evidence of hydronephrosis or renal calculus. The ureters are unremarkable. PELVIS BLADDER: Unremarkable REPRODUCTIVE: Surgically absent right testis. ABDOMEN & PELVIS STOMACH AND BOWEL: No evidence of bowel obstruction. The appendix is normal. PERITONEUM/RETROPERITONE UM: No evidence of pneumoperitoneum or free fluid. VASCULATURE: No evidence of aortic aneurysm. MUSCULOSKELETAL: No acute osseous abnormalities LYMPH NODES: No gross evidence for lymphadenopathy. Abnormality seen on prior PET/CT in 02/12/2024 is not significantly changed with soft tissue measuring up to 10 mm similar prior. SOFT TISSUE/ABDOMINAL WALL: Unremarkable IMPRESSION: 1. Surgically absent right testis. Stable appearance of retropulsion or tail lymph node which is ind eterminate. Given stability since 02/12/2024 possibly benign. 2. No evidence for acute abdominal process. [facility] Wilson, , 05/31/2024 5:33 PM
== END | disposition home or self-care (01) ==
LOC: RADCTMAIN 15:26
PROVIDERS: ATTEND Internal Medicine
DX: C62.91 Malignant neoplasm of right testis, unspecified whether descended or undescended
CPT/HCPCS: 36415; 74177; 82565; 84520